=== PATIENT | female | born 1965 | race Caucasian/White ===

== ENCOUNTER 2016-10-04 16:03 | Inpatient (IN) | payer MEDICARE ==
[2016-10-04] MEDS ORDERED: SODIUM CHLORIDE 0.9% 1,000 ML IV STA (16:57)
[2016-10-04] MEDS ORDERED: ONDANSETRON 4 MG/2 ML VIAL IVP STA (16:57)
[2016-10-04] MEDS ORDERED: HYDROmorphone 1 MG/ML 1 ML SYRINGE IVP STA (16:57)
--- NOTE | 2016-10-04 17:00 | ED ---
Abdominal Pain HPI - General Source: patient, RN notes reviewed Mode of arrival: ambulatory Limitations: no limitations <Bill Shetty - Last Filed: 10/04/16 19:12> <Shiva Higgins - Last Filed: 10/04/16 19:54> - General Chief Complaint: Abdominal Pain Stated Complaint: Abd Pain/Chest Pain/Back Pain Time Seen by Provider: 10/04/16 16:39 - History of Present Illness Initial Comments: This a 51-year-old female presents emergency Department chief complaint upper abdominal pain that started around 10:00 last night. Patient states the pain feels like a tightening sensation. Patient states it does hurt more on the right upper quadrant. Patient states pain radiates up to her back, chest region. Patient denies any palpitations, shortness of breath. Patient states that she's had a prior hysterectomy and tubal ligation. Patient states that she ate around 5 PM last night and pain started 5 hours after. Patient had nausea and vomiting last night. Patient denies fever, chills. to normal bowel movements no diarrhea no constipation denies melena, hematochezia, hematemesis or coffee-ground emesis. Patient states she's had kidney stones in the past and this feels much different. (Bill Shetty) - Related Data Home Medications Medication Instructions Recorded Confirmed Albuterol Inhaler [Ventolin Hfa 1 - 2 puff INHALATION RT-Q6H PRN 10/04/16 Inhaler] Cholecalciferol [Vitamin D3] 1,000 unit PO DAILY 10/04/16 10/04/16 DULoxetine HCL [Cymbalta] 60 mg PO DAILY 10/04/16 10/04/16 Gabapentin 600 mg PO TID 10/04/16 10/04/16 Allergies Allergy/AdvReac Type Severity Reaction Status Date / Time aspirin Allergy Unknown Verified 10/04/16 17:25 Sulfa (Sulfonamide Allergy Unknown Verified 10/04/16 17:25 Antibiotics) SEAFOOD Allergy Unknown Uncoded 10/04/16 16:21 Review of Systems ROS Other: All systems not noted in ROS Statement are negative. <Bill Shetty - Last Filed: 10/04/16 19:12> ROS Other: All systems not noted in ROS Statement are negative. <Shiva Higgins - Last Filed: 10/04/16 19:54> ROS Statement: Those systems with pertinent positive or pertinent negative responses have been documented in the HPI. Past Medical History Past Medical History: Asthma Additional Past Medical History / Comment(s): NEUROPATHY History of Any Multi-Drug Resistant Organisms: None Reported Past Surgical History: Hysterectomy, Orthopedic Surgery, Tubal Ligation Past Psychological History: No Psychological Hx Reported Smoking Status: Former smoker Past Alcohol Use History: None Reported Past Drug Use History: None Reported <Bill Shetty - Last Filed: 10/04/16 19:12> General Exam Limitations: no limitations General appearance: alert, in no apparent distress Head exam: Present: atraumatic, normocephalic, normal inspection Neck exam: Present: normal inspection, full ROM. Absent: tenderness, meningismus, lymphadenopathy Respiratory exam: Present: normal lung sounds bilaterally. Absent: respiratory distress, wheezes, rales, rhonchi, stridor Cardiovascular Exam: Present: regular rate, normal rhythm, normal heart sounds. Absent: systolic murmur, diastolic murmur, rubs, gallop, clicks GI/Abdominal exam: Present: soft, tenderness (Moderate to severe right upper quadrant tenderness), normal bowel sounds. Absent: distended, guarding, rebound , rigid Back exam: Absent: CVA tenderness (R), CVA tenderness (L) Skin exam: Present: warm, dry, intact, normal color. Absent: rash <Bill Shetty - Last Filed: 10/04/16 19:12> Medical Decision Making - Lab Data Result diagrams: 10/04/16 17:15 10/04/16 17:15 <Bill Shetty - Last Filed: 10/04/16 19:12> - Lab Data Result diagrams: 10/04/16 17:15 10/04/16 17:15 <Shiva Higgins - Last Filed: 10/04/16 19:54> - Medical Decision Making Medical decision-making. The patient complaining of pain to the right upper quadrant. White count 15.9. Positive Velez sign. Ultrasound shows evidence of a large stone stuck in the neck. Appears to be cholecystitis with cholelithiasis. Case discussed with Dr. Maldonado on-call surgeon. Patient be admitted to her service placed on antibiotics. Dr. Higgins (Shiva Higgins) - Lab Data Lab Results 10/04/16 10/04/16 10/04/16 Range/Units 17:15 17:15 17:15 WBC 15.9 H (3.8-10.6) k/uL RBC 5.04 (3.80-5.40) m/uL Hgb 14.8 (11.4-16.0) gm/dL Hct 43.8 (34.0-46.0) % MCV 86.9 (80.0-100.0) fL MCH 29.4 (25.0-35.0) pg MCHC 33.8 (31.0-37.0) g/dL RDW 12.9 (11.5-15.5) % Plt Count 278 (150-450) k/uL Neutrophils % 91 % Lymphocytes % 4 % Monocytes % 4 % Eosinophils % 0 % Basophils % 0 % Neutrophils # 14.5 H (1.3-7.7) k/uL Lymphocytes # 0.7 L (1.0-4.8) k/uL Monocytes # 0.6 (0-1.0) k/uL Eosinophils # 0.1 (0-0.7) k/uL Basophils # 0.0 (0-0.2) k/uL Sodium 137 (137-145) mmol/L Potassium 4.0 (3.5-5.1) mmol/L Chloride 99 (98-107) mmol/L Carbon Dioxide 25 (22-30) mmol/L Anion Gap 13 mmol/L BUN 9 (7-17) mg/dL Creatinine 0.55 (0.52-1.04) mg/dL Est GFR (MDRD) Af Amer >60 (>60 ml/min/1.73 sqM) Est GFR (MDRD) Non-Af >60 (>60 ml/min/1.73 sqM) Glucose 139 H (74-99) mg/dL Calcium 9.6 (8.4-10.2) mg/dL Total Bilirubin 0.9 (0.2-1.3) mg/dL AST 25 (14-36) U/L ALT 50 (9-52) U/L Alkaline Phosphatase 79 (38-126) U/L Troponin I <0.012 (0.000-0.034) ng/mL Total Protein 7.7 (6.3-8.2) g/dL Albumin 4.3 (3.5-5.0) g/dL Amylase 46 (30-110) U/L Lipase 47 (23-300) U/L Urine Color Urine Appearance (Clear) Urine pH (5.0-8.0) Ur Specific [place] (1.001-1.035) Urine Protein (Negative) Urine Glucose (UA) (Negative) Urine Ketones (Negative) Urine Blood (Negative) Urine Nitrate (Negative) Urine Bilirubin (Negative) Urine Urobilinogen (<2.0) mg/dL Ur Leukocyte Esterase (Negative) 10/04/16 Range/Units 19:15 WBC (3.8-10.6) k/uL RBC (3.80-5.40) m/uL Hgb (11.4-16.0) gm/dL Hct (34.0-46.0) % MCV (80.0-100.0) fL MCH (25.0-35.0) pg MCHC (31.0-37.0) g/dL RDW (11.5-15.5) % Plt Count (150-450) k/uL Neutrophils % % Lymphocytes % % Monocytes % % Eosinophils % % Basophils % % Neutrophils # (1.3-7.7) k/uL Lymphocytes # (1.0-4.8) k/uL Monocytes # (0-1.0) k/uL Eosinophils # (0-0.7) k/uL Basophils # (0-0.2) k/uL Sodium (137-145) mmol/L Potassium (3.5-5.1) mmol/L Chloride (98-107) mmol/L Carbon Dioxide (22-30) mmol/L Anion Gap mmol/L BUN (7-17) mg/dL Creatinine (0.52-1.04) mg/dL Est GFR (MDRD) Af Amer (>60 ml/min/1.73 sqM) Est GFR (MDRD) Non-Af (>60 ml/min/1.73 sqM) Glucose (74-99) mg/dL Calcium (8.4-10.2) mg/dL Total Bilirubin (0.2-1.3) mg/dL AST (14-36) U/L ALT (9-52) U/L Alkaline Phosphatase (38-126) U/L Troponin I (0.000-0.034) ng/mL Total Protein (6.3-8.2) g/dL Albumin (3.5-5.0) g/dL Amylase (30-110) U/L Lipase (23-300) U/L Urine Color Yellow Urine Appearance Clear (Clear) Urine pH 5.5 (5.0-8.0) Ur Specific [place] 1.014 (1.001-1.035) Urine Protein Trace H (Negative) Urine Glucose (UA) Negative (Negative) Urine Ketones Negative (Negative) Urine Blood Negative (Negative) Urine Nitrate Negative (Negative) Urine Bilirubin Negative (Negative) Urine Urobilinogen <2.0 (<2.0) mg/dL Ur Leukocyte Esterase Negative (Negative) 10/04/16 19:01 EKG performed at 17:09 normal sinus rhythm with left axis deviation rate of 98, [place] 150, QRS duration 94, QT/QTC 342/436 (Bill Shetty) Disposition <Bill Shetty - Last Filed: 10/04/16 19:12> <Shiva Higgins - Last Filed: 10/04/16 19:54> Clinical Impression: Cholecystitis, acute with cholelithiasis Disposition: ADMITTED IP TO THIS HOSP Condition: Stable Referrals: Ross Lau MD [Primary Care Provider] - 1-2 days
[2016-10-04 17:36] LABS: Basophils % (A) 0 %; CH 29.7; CHCM 34.3; Eosinophils # (A) 0.1 k/uL (0-0.7); Eosinophils % (A) 0 %; HCT 43.8 % (34.0-46.0); HDW 2.56; HGB 14.8 gm/dL (11.4-16.0); Luc # (Auto) 0.09; Luc % (Auto) 1; Lymphocytes # (A) 0.7 k/uL (1.0-4.8); Lymphocytes % (A) 4 %; MCH 29.4 pg (25.0-35.0); MCHC 33.8 g/dL (31.0-37.0); MCV 86.9 fL (80.0-100.0); Mean Platelet Volume 6.3; Monocytes # (A) 0.6 k/uL (0-1.0); Monocytes % (A) 4 %; Neutrophils # (A) 14.5 k/uL (1.3-7.7); Neutrophils % (A) 91 %; RBC 5.04 m/uL (3.80-5.40); RDW 12.9 % (11.5-15.5); WBC 15.9 k/uL (3.8-10.6); WBC (Perox) 16.52
[2016-10-04 17:59] LABS: ALT 50 U/L (9-52); AST 25 U/L (14-36); Alkaline Phosphatase 79 U/L (38-126); Amylase 46 U/L (30-110); Anion Gap 13 mmol/L; Blood Urea Nitrogen 9 mg/dL (7-17); Calcium 9.6 mg/dL (8.4-10.2); Carbon Dioxide 25 mmol/L (22-30); Chloride 99 mmol/L (98-107); Glucose 139 mg/dL (74-99); Non-African American GFR(MDRD) >60 (>60 ml/min/1.73 sqM); Sodium 137 mmol/L (137-145); Total Bilirubin 0.9 mg/dL (0.2-1.3); Total Protein 7.7 g/dL (6.3-8.2)
--- NOTE | 2016-10-04 18:00 | US ---
EXAMINATION TYPE: US abdomen limited DATE OF EXAM: 10/04/2016 5:42 PM COMPARISON: NONE CLINICAL HISTORY: Pain. EXAM MEASUREMENTS: Liver Length: 19.2 cm Gallbladder Wall: 0.2 cm CBD: 0.6 cm Right Kidney: 10.2 x 5.1 x 5.5 cm TECHNOLOGIST IMPRESSION: Pancreas: Obscured by bowel gas Liver: Enlarged, Increased attenuation, decreased visualization of vessels suggestive of fatty infilt rate Gallbladder: Large stone visualized within the neck measuring 3.1 cm Evidence for sonographic Velez's sign: Yes CBD: Measuring upper limits of normal, distal portion obscured by bowel gas Right Kidney: No hydronephrosis or masses seen IMPRESSION: Gallbladder is large with a large stone at the gallbladder neck. No dilated ducts.
[2016-10-04] MEDS ORDERED: PIPERACILLIN TAZOBACTAM IVPB STA ×2 (19:12)
[2016-10-04] MEDS ORDERED: NALOXONE 0.4 MG/ML 1 ML VIAL IV PRN (19:12)
[2016-10-04] MEDS ORDERED: WATER IVPB STA ×2 (19:12)
[2016-10-04] MEDS ORDERED: ONDANSETRON 4 MG/2 ML VIAL IVP PRN (19:12)
[2016-10-04] MEDS ORDERED: DEXTROSE 5% IVPB STA ×2 (19:12)
[2016-10-04 19:23] LABS: Appearance,Urine Clear (Clear); Bilirubin,Urine Negative (Negative); Glucose,Urine (UA) Negative (Negative); Ketones,Urine Negative (Negative); Leukocyte Esterase,Urine Negative (Negative); Nitrite,Urine Negative (Negative); PH, Urine 5.5 (5.0-8.0); Protein,Urine Trace (Negative); Specific Gravity,Urine 1.014 (1.001-1.035); UA Billing (MACRO vs. MICRO) CHEM; Urobilinogen,Urine <2.0 mg/dL (<2.0)
[2016-10-04] MEDS: HYDROmorphone 1 MG/ML 1 ML SYRINGE IV PRN (19:45)
[2016-10-04] MEDS: SODIUM CHLORIDE 0.9% 1,000 ML IV SCH (20:37)
[2016-10-04 21:04] VITALS: BMI 43.5
[2016-10-04] MEDS: DULoxetine HCL 60 MG CAPSULE.DR PO SCH (22:16)
[2016-10-04] MEDS: GABAPENTIN 300 MG CAP PO SCH (22:17)
[2016-10-05] MEDS: HYDROmorphone 1 MG/ML 1 ML SYRINGE IV PRN ×4 (01:03→23:10)
[2016-10-05] MEDS: PIPERACILLIN-TAZOBACTAM 3.375 GM in DEXTROSE/WATER 1 50ML.BAG IVPB SCH ×3 (04:00→20:41)
[2016-10-05] MEDS: SODIUM CHLORIDE 0.9% 1,000 ML IV SCH ×3 (07:22→20:40)
[2016-10-05] MEDS: GABAPENTIN 300 MG CAP PO SCH ×3 (08:53→20:45)
[2016-10-05] MEDS: DULoxetine HCL 60 MG CAPSULE.DR PO SCH ×2 (08:53→20:45)
[2016-10-05] MEDS ORDERED: PANTOPRAZOLE 40 MG/10 ML VIAL IV SCH (09:00)
[2016-10-05] MEDS ORDERED: ACETAMINOPHEN IV (For NPO) 1,000 MG in EMPTY BAG 1 BAG IVPB ONE ×2 (10:08→15:20)
[2016-10-05] MEDS ORDERED: HEPARIN SODIUM,PORCINE 5,000 UNIT/ML 1 ML VIAL SQ ONE (10:08)
[2016-10-05 10:46] LABS: Basophils % (A) 0 %; CH 29.4; CHCM 33.1; Eosinophils # (A) 0.1 k/uL (0-0.7); Eosinophils % (A) 1 %; HCT 42.2 % (34.0-46.0); HDW 2.46; HGB 13.7 gm/dL (11.4-16.0); Luc # (Auto) 0.16; Luc % (Auto) 1; Lymphocytes # (A) 0.8 k/uL (1.0-4.8); Lymphocytes % (A) 6 %; MCHC 32.6 g/dL (31.0-37.0); MCV 89.1 fL (80.0-100.0); Mean Platelet Volume 6.4; Monocytes # (A) 0.7 k/uL (0-1.0); Monocytes % (A) 5 %; Neutrophils # (A) 12.8 k/uL (1.3-7.7); Neutrophils % (A) 87 %; RBC 4.74 m/uL (3.80-5.40); RDW 12.9 % (11.5-15.5); WBC 14.7 k/uL (3.8-10.6)
[2016-10-05 10:48] LABS: ALT 47 U/L (9-52); AST 24 U/L (14-36); Alkaline Phosphatase 71 U/L (38-126); Anion Gap 9 mmol/L; Blood Urea Nitrogen 10 mg/dL (7-17); Calcium 8.6 mg/dL (8.4-10.2); Carbon Dioxide 30 mmol/L (22-30); Chloride 100 mmol/L (98-107); Glucose 136 mg/dL (74-99); Non-African American GFR(MDRD) >60 (>60 ml/min/1.73 sqM); Sodium 139 mmol/L (137-145); Total Bilirubin 1.5 mg/dL (0.2-1.3); Total Protein 6.4 g/dL (6.3-8.2)
[2016-10-05] MEDS: CHOLECALCIFEROL 1,000 UNIT TAB PO SCH (11:25)
[2016-10-05] MEDS ORDERED: ceFAZolin 2 GM in SODIUM CHLORIDE 0.9% 100 ML IVPB STA (11:59)
--- NOTE | 2016-10-05 12:07 | P.GSHP ---
History of Present Illness H&P Date: 10/05/16 CHIEF COMPLAINT: Cholecystitis HISTORY OF PRESENT ILLNESS: The patient is a 51-year-old female who presents with history of epigastric including right upper quadrant abdominal pain. She underwent diagnostic studies for her gallbladder. She had an ultrasound showing an impacted 3 cm gallstone along the infundibulum. She has a family history of gallstones in her mother who has not had surgical intervention. She presents with a WBC of over 15,000. This morning she still reports severe right upper quadrant abdominal pain requiring narcotics. As a result, she has been admitted to undergo surgery. PAST MEDICAL HISTORY: Please see list PAST SURGICAL HISTORY: Please see list MEDICATIONS: Please see list ALLERGIES: Denies. SOCIAL HISTORY: No illicit drug use or recent tobacco use FAMILY HISTORY: Pertinent for gallbladder disease REVIEW OF ORGAN SYSTEMS: CONSTITUTIONAL: No reports of fevers or chills. HEENT: Denies any troubles with the vision or hearing. ENDOCRINE: No reports of hypothyroidism. No diabetes. RESPIRATORY: No recent pneumonias. CARDIOVASCULAR: Denies chest pain or palpitations GI: No blood in stools or constipation. MUSCULOSKELETAL: Has occasional joint pain including back pain. NEURO: No seizure disorders or headaches. No recent stroke. PSYCH: No depression or suicidal ideation. HEMATOLOGIC: No personal or family history of DVTs or pulmonary emboli. PHYSICAL EXAM: VITAL SIGNS: Vital Signs Temp 97.9 F 10/05/16 11:11 Pulse 111 H 10/05/16 11:11 Resp 16 10/05/16 11:11 BP 107/71 10/05/16 11:11 Pulse Ox 93 L 10/05/16 11:11 Intake & Output 10/04/16 10/05/16 10/05/16 18:59 06:59 18:59 Weight 122.47 kg 122.47 kg Other: # Voids 1 1 GENERAL: Well-developed pleasant in mild distress. HEENT: No scleral icterus. Extraocular movements grossly intact. Moist buccal mucosa. NECK: Supple without lymphadenopathy. CHEST: Unlabored respirations. Equal bilateral excursions. CARDIOVASCULAR: Has tachycardia. Distal 2+ pulses. ABDOMEN: Soft, nondistended. Tender along the epigastrium and right upper quadrant. Has peritonitis on exam. MUSCULOSKELETAL: No clubbing, cyanosis, or edema. NEURO: Cranial nerves II to XII within normal limits. No focal or lateralizing signs. PSYCH: Alert and oriented to person, place and time. ASSESSMENT: 1. Epigastric and right upper quadrant abdominal pain 2. Acute cholecystitis 3. Symptomatic gallstones. 4. Morbid obesity, BMI 43.6. 5. Peritonitis, right upper quadrant. 6. Family history of gallbladder disease. 7. Sepsis syndrome secondary to acute cholecystitis. PLAN: 1. Will need a laparoscopic cholecystectomy possible open. Benefits and risks were described. 2. Heparin for DVT prophylaxis 5000 units. 3. Antibiotic prophylaxis. 4. Full inpatient hospitalization anticipated for 2 nights secondary to acute cholecystitis and sepsis. Past Medical History Past Medical History: Asthma Additional Past Medical History / Comment(s): NEUROPATHY History of Any Multi-Drug Resistant Organisms: None Reported Past Surgical History: Hysterectomy, Orthopedic Surgery, Tubal Ligation Additional Past Surgical History / Comment(s): Carpal tunnel surgery in both hands Past Anesthesia/Blood Transfusion Reactions: No Reported Reaction Past Psychological History: No Psychological Hx Reported Additional Psychological History / Comment(s): Mild Depression, not taking anything for it. Smoking Status: Former smoker Past Alcohol Use History: None Reported Additional Past Alcohol Use History / Comment(s): Rarely has a drink Past Drug Use History: None Reported - Past Family History Father Family Medical History: Diabetes Mellitus Medications and Allergies Home Medications Medication Instructions Recorded Confirmed Type Albuterol Inhaler [Ventolin Hfa 1 - 2 puff INHALATION RT-Q6H PRN 10/04/16 History Inhaler] Cholecalciferol [Vitamin D3] 1,000 unit PO DAILY 10/04/16 10/04/16 History DULoxetine HCL [Cymbalta] 60 mg PO DAILY 10/04/16 10/04/16 History Gabapentin 600 mg PO TID 10/04/16 10/04/16 History Allergies Allergy/AdvReac Type Severity Reaction Status Date / Time aspirin Allergy Anaphylaxis Verified 10/04/16 21:13 Sulfa (Sulfonamide AdvReac Rash/Hives Verified 10/04/16 21:13 Antibiotics) SEAFOOD Allergy Swelling Uncoded 10/04/16 21:13 Surgical - Exam Vital Signs Temp Pulse Resp BP Pulse Ox 97.3 F L 108 H 18 166/86 97 10/04/16 16:15 10/04/16 16:15 10/04/16 16:15 10/04/16 16:15 10/04/16 16:15 Results - Labs 10/05/16 10:08 10/05/16 10:08
--- NOTE | 2016-10-05 12:08 | P.PN ---
Progress Note - Text Has severe attack with gallstones. Has peritonitis on exam. Laparoscopic cholecystectomy today.
[2016-10-05] MEDS ORDERED: IV FLUID CONTINUATION 1,000 ML IV ONE (12:33)
[2016-10-05] MEDS ORDERED: DEXAMETHASONE SOD PHOSPHATE 10 MG/ML 1 ML VIAL IV ONE (12:38)
[2016-10-05] MEDS ORDERED: fentaNYL (PF) 50 MCG/ML 2 ML AMP ONE (13:19)
[2016-10-05] MEDS ORDERED: SUCCINYLCHOLINE CHLORIDE VIAL 200 MG/10 ML VIAL IV ONE (13:19)
[2016-10-05] MEDS ORDERED: GLYCOPYRROLATE 0.2 MG/ML 2 ML VIAL ONE (13:19)
[2016-10-05] MEDS ORDERED: ROCURONIUM BROMIDE 10 MG/ML 10 ML VIAL IV ONE (13:19)
[2016-10-05] MEDS ORDERED: PROPOFOL 10 MG/ML 20 ML VIAL IV ONE (13:19)
[2016-10-05] MEDS ORDERED: MIDAZOLAM 2 MG/2 ML VIAL ONE (13:19)
[2016-10-05] MEDS ORDERED: BUPIVACAIN-EPI 0.25%-1:200,000 30 ML VIAL SQ ONE ×3 (13:19→15:14)
[2016-10-05] MEDS ORDERED: NEOSTIGMINE 1 MG/ML 10 ML VIAL ONE (13:19)
[2016-10-05] MEDS ORDERED: ALBUTEROL INHALER 60 PUFF/8 GM INHALER INHALATION ONE (13:19)
[2016-10-05] MEDS ORDERED: LIDOCAINE 1% INJ 10MG/ML (20 ML MDV) ONE (13:19)
[2016-10-05] MEDS ORDERED: LACTATED RINGERS 1,000 ML IV ONE ×2 (13:47→16:48)
--- NOTE | 2016-10-05 15:23 | P.PCN ---
Date of Procedure: 10/05/16 Preoperative Diagnosis: Sepsis, acute gangrenous cholecystitis, peritonitis, morbid obesity, BMI 43.6 Postoperative Diagnosis: Same, hepatomegaly, fatty liver disease Procedure(s) Performed: Laparoscopic cholecystectomy, decompression of gallbladder Anesthesia: KORY, local Surgeon: Taty Maldonado Estimated Blood Loss (ml): 20 Pathology: other (Gallbladder fluid, gallbladder) Condition: stable Disposition: floor Indications for Procedure: Contaminated case for gangrenous gallbladder, turbid peritoneal fluid sent for culture, short cystic duct identified and preserved for CBD, impacted gallstone along infundibulum
[2016-10-05] MEDS: HYDROmorphone 1 MG/ML 1 ML SYRINGE IVP ONE ×2 (16:37→16:46)
[2016-10-05] MEDS: HEPARIN SODIUM,PORCINE 5,000 UNIT/ML 1 ML VIAL SQ SCH (20:46)
[2016-10-06] MEDS: PIPERACILLIN-TAZOBACTAM 3.375 GM in DEXTROSE/WATER 1 50ML.BAG IVPB SCH ×3 (04:06→20:06)
[2016-10-06 06:43] LABS: Basophils % (A) 0 %; CH 29.1; CHCM 32.2; Eosinophils % (A) 0 %; HCT 37.8 % (34.0-46.0); HDW 2.45; HGB 12.1 gm/dL (11.4-16.0); Luc % (Auto) 2; Lymphocytes % (A) 7 %; MCH 28.9 pg (25.0-35.0); MCHC 31.9 g/dL (31.0-37.0); MCV 90.5 fL (80.0-100.0); Mean Platelet Volume 7.1; Monocytes # (A) 0.6 k/uL (0-1.0); Monocytes % (A) 5 %; Neutrophils # (A) 11.4 k/uL (1.3-7.7); Neutrophils % (A) 86 %; RBC 4.18 m/uL (3.80-5.40); RDW 12.9 % (11.5-15.5); WBC 13.2 k/uL (3.8-10.6)
--- NOTE | 2016-10-06 06:44 | P.OP ---
Date of Procedure: 10/05/16 Description of Procedure: SURGEON: DIANE ANG MD STRATEGY INTERN: None. PREOPERATIVE DIAGNOSES: 1. Acute cholecystitis. 2. Right upper quadrant peritonitis. 3. Sepsis due to acute cholecystitis. 4. Morbid obesity, BMI 43.6. 5. Neuropathy, lower extremities. 6. Impacted gallstone, gallbladder infundibulum. 7. Leukocytosis. 8. Tachycardia. 9. Family history of gallbladder disease. POSTOPERATIVE DIAGNOSES: 1. Acute gangrenous cholecystitis with cystic duct obstruction due to impacted stone along gallbladder infundibulum. 2. Right upper quadrant peritonitis. 3. Sepsis due to acute cholecystitis. 4. Morbid obesity, BMI 43.6. 5. Neuropathy, lower extremities. 6. Impacted gallstone, gallbladder infundibulum. 7. Leukocytosis. 8. Tachycardia. 9. Ascites with peritonitis, right upper quadrant. 10. Hepatomegaly with fatty liver disease. 11. Family history of gallbladder disease. OPERATION: 1. Laparoscopic cholecystectomy. 2. Percutaneous decompression gallbladder. 3. Lysis of adhesions, right upper quadrant using Sonicision and electrocautery Bovie cautery over 30 minutes. ANESTHESIA: General with 30 mL 0.25% Marcaine with epinephrine. ESTIMATED BLOOD LOSS: 20 mL. SPECIMENS REMOVED: 1. Gallbladder. 2. Gallbladder fluid. 3. Peritoneal fluid. COMPLICATIONS: None. INDICATIONS: The patient is a 51-year-old female who presents with acute right upper quadrant abdominal pain in the last 24 hours. He presents with tachycardia including leukocytosis consistent with early sepsis. Diagnostic studies were consistent with impacted gallstone along the infundibulum. Surgical intervention with a laparoscopic cholecystectomy was described at length including injury to the biliary tree, bleeding, infection, need for further surgery. Informed consent was obtained. DESCRIPTION OF THE PROCEDURE: The patient was brought to the operating room, laid in supine position. After general induction, the abdomen was prepped and draped in a standard sterile fashion. Prior to incision, a timeout protocol was confirmed with surgical team regarding patient's name, procedure to be performed including preoperative medications for which she had received heparin 5000 units subcutaneously as well as bilateral SCDs for DVT prophylaxis. A transverse 5 mm incision was made above the umbilicus and off to the right of the midline. Please note the skin was localized prior to incision. A 0 degree 5-mm laparoscopic trocar entry was performed and entered into the peritoneal cavity. Diagnostic laparoscopy confirmed no injury to bowel, viscera or mesentery. The liver is large consistent with hepatomegaly and fatty liver disease. Next, two 5 mm trocars were placed along the right costal margin followed by a 11 mm port at the left upper quadrant. The patient was placed in steep reverse Trendelenburg position with the right side up. The gallbladder was covered with greater omentum and dense right upper quadrant adhesions. Lysis of adhesions occurred for 30 minutes with Sonicision and electro-Bovie cautery. Care was taken to avoid any injury to the bowel. The gallbladder was very distended with tight and thick gallbladder wall. Additionally, area of partial necrosis along the gallbladder wall was found along the body of the gallbladder. Turbid right upper quadrant fluid was aspirated and sent for cultures. Next, decompression of the gallbladder using electro-Bovie as performed to allow handling of the gallbladder. Gallbladder fluid was also sent. As the liver was extremely large, reflection of the gallbladder over the dome of the liver was challenging. The gallbladder fundus was retracted over the dome of the liver. A large 3 cm gallstone was found impacted along the infundibulum whereby careful blunt dissection for over 20 minutes was performed to identify the cystic duct from the common bile duct. No harm or injury had occurred to the common bile duct which is carefully delineated. The 11 mm trocar along the left upper quadrant was replaced with a 12 mm port for a 12 mm clip erp consultant. A short cystic duct was confirmed. A meandering left cystic artery anterior to the common bile duct was identified, clipped and divided using Sonicision. nitial attention was brought to the infundibulum which was gently Using a large clip erp consultant 3 clips were placed proximally on the cystic duct. On the body of the gallbladder, the cystic duct was divided to prevent any injury to the common bile duct as this was a short cystic duct. Again care was taken to avoid any injury to the biliary tree as the common bile duct was visualized during this portion of dissection. Next, the cystic artery was clipped twice proximally, once distally and then cauterized. The cystic structures were divided using Sonicision. Electro-Bovie cautery and Sonicision was used to remove the gallbladder from the hepatic fossa. The gallbladder was also intrahepatic and the liver bed was carefully cauterized. Hemostasis was checked and found to be adequate. The gallbladder was removed from the abdominal cavity via the left upper quadrant for which the fascia was widen to allow removal of the gallbladder with large gallstones using an Endo Catch bag. The specimen was passed off for further pathological analysis. The abdomen was irrigated using 1 L of normal saline solution until the aspirant was clear. All instruments and pneumoperitoneum were removed from the abdominal cavity. The fascial defect of the left upper quadrant was oversewn using 0 Vicryl and Ezequiel Smith. The rest of incisions were reapproximated using 4-0 Monocryl in an interrupted subcuticular fashion. A total of 30 mL of 0.25% Marcaine with epinephrine was infiltrated to all wounds for postop analgesia. Dermabond was applied to the skin. OptiFoam antibiotic dressing was placed over the left upper quadrant incision as this is a contaminated case. At the end of the procedure, needle, sponge, and instrument count was verified correct by surgical physician assistant. The patient had tolerated the procedure well and was taken to postanesthesia care unit in stable condition. Per request of the patient, her friend was contacted via telephone after surgery. FINDINGS: 1. Turbid peritoneal fluid with peritonitis right upper quadrant. 2. Acute gangrenous cholecystitis with impacted gallstone and cystic duct obstruction. 3. Adhesions of the right upper quadrant adding an additional 30 minutes to the case. 4. Anatominal variant with meandering left cystic artery anterior the common bile duct. 5. Short cystic duct.
--- NOTE | 2016-10-06 06:45 | P.PN ---
Progress Note - Text Patient re-evaluated this evening. Right upper quadrant abdominal pain moderately improved. We'll continue with antibiotics with history of sepsis.
[2016-10-06 07:07] LABS: ALT 78 U/L (9-52); AST 54 U/L (14-36); Alkaline Phosphatase 70 U/L (38-126); Anion Gap 9 mmol/L; Blood Urea Nitrogen 12 mg/dL (7-17); Calcium 8.5 mg/dL (8.4-10.2); Carbon Dioxide 31 mmol/L (22-30); Chloride 100 mmol/L (98-107); Glucose 122 mg/dL (74-99); Magnesium 1.9 mg/dL (1.6-2.3); Non-African American GFR(MDRD) >60 (>60 ml/min/1.73 sqM); Phosphorous 3.4 mg/dL (2.5-4.5); Potassium 4.1 mmol/L (3.5-5.1); Sodium 140 mmol/L (137-145); Total Bilirubin 0.9 mg/dL (0.2-1.3)
[2016-10-06] MEDS ORDERED: PANTOPRAZOLE 40 MG/10 ML VIAL IV SCH (09:00)
[2016-10-06] MEDS: GABAPENTIN 300 MG CAP PO SCH ×3 (09:13→22:10)
[2016-10-06] MEDS: HEPARIN SODIUM,PORCINE 5,000 UNIT/ML 1 ML VIAL SQ SCH ×2 (09:14→22:08)
[2016-10-06] MEDS: HYDROmorphone 1 MG/ML 1 ML SYRINGE IV PRN (09:22)
--- NOTE | 2016-10-06 10:54 | P.PN ---
Subjective Principal diagnosis: Sepsis with cholecystitis The patient is a 51-year-old female postop day 1 status post laparoscopic cholecystectomy. Intraoperative findings including gangrenous cholecystitis was discussed. Risk after surgery including bile leak and retained gallstone were also reviewed. She is tolerating liquid diet. She has an appetite. She is yet to ambulate. She has been started on incentive spirometry. She reports improvement of her right upper quadrant abdominal pain. Overall she only complains of expected mild post-incisional pain. Objective - Vital Signs Vital signs: Vital Signs Temp 98.7 F 10/06/16 04:00 Pulse 90 10/06/16 04:00 Resp 16 10/06/16 04:00 BP 142/78 10/05/16 23:00 Pulse Ox 94 L 10/06/16 04:00 Intake & Output 10/05/16 10/06/16 10/06/16 18:59 06:59 18:59 Intake Total 1400 Output Total 820 550 Balance 580 -550 Intake: IV 1400 Output: Urine 800 550 Estimated Blood Loss 20 Other: # Voids 1 0 - Exam GENERAL: Well developed and in no acute distress. Pleasant. HEENT: No sclera icterus. Extraocular movements grossly intact. Moist buccal mucosa. Head is atraumatic, normocephalic. Hears conversational speech. No nasal drainage. NECK: Supple without lymphadenopathy. No JV distention. CHEST: Non-labored respirations and equal bilateral excursions. CARDIOVASCULAR: Regular rate and rhythm. Palpable 2+ radial pulses. ABDOMEN: Soft. Mild distention. Incisions clean dry and intact laparoscopic sites. Antibiotic dressing intact at left upper quadrant. No peritonitis. MUSCULOSKELETAL: No clubbing, cyanosis or edema. NEUROLOGIC: No focal or lateralizing signs. PSYCH: Appropriate affect. Alert and oriented to person, place and time. - Labs CBC & Chem 7: 10/06/16 06:29 10/06/16 06:29 Labs: Abnormal Lab Results - Last 24 Hours (Table) 10/05/16 10/05/16 10/06/16 Range/Units 10:08 10:08 06:29 WBC 14.7 H 13.2 H (3.8-10.6) k/uL Neutrophils # 12.8 H 11.4 H (1.3-7.7) k/uL Lymphocytes # 0.8 L (1.0-4.8) k/uL Carbon Dioxide (22-30) mmol/L Glucose 136 H (74-99) mg/dL Total Bilirubin 1.5 H (0.2-1.3) mg/dL AST (14-36) U/L ALT (9-52) U/L Total Protein (6.3-8.2) g/dL Albumin (3.5-5.0) g/dL 10/06/16 Range/Units 06:29 WBC (3.8-10.6) k/uL Neutrophils # (1.3-7.7) k/uL Lymphocytes # (1.0-4.8) k/uL Carbon Dioxide 31 H (22-30) mmol/L Glucose 122 H (74-99) mg/dL Total Bilirubin (0.2-1.3) mg/dL AST 54 H (14-36) U/L ALT 78 H (9-52) U/L Total Protein 6.0 L (6.3-8.2) g/dL Albumin 3.2 L (3.5-5.0) g/dL Microbiology - Last 24 Hours (Table) 10/05/16 14:00 Gram Stain - Preliminary Aspirate Body Fluid Culture - Preliminary 10/05/16 14:00 Anaerobic Culture - Preliminary Gallbladder Fluid Assessment and Plan (1) Acute gangrenous cholecystitis Status: Acute (2) Peritonitis Status: Acute (3) Gallstones Status: Chronic (4) Calculus of cystic duct with obstruction Status: Acute (5) Morbid obesity due to excess calories Status: Chronic (6) BMI greater than 40 Status: Chronic (7) Sleep apnea Status: Chronic (8) Adhesion of abdominal wall Status: Chronic (9) Sepsis Status: Acute (10) Leukocytosis Status: Acute (11) Tachycardia Status: Acute (12) Elevated bilirubin Status: Acute Plan: 1. Her chemistries particularly her elevated bilirubin is now normal following surgery. 2. With a history of sepsis including acute cholecystitis, recommend continued IV antibiotics as she had a contaminated case. 3. Risks post cholecystectomy were also reviewed including potential bile leak or retained stone. We'll continue to monitor. 4. Advance diet. 5. Incentive spirometry. 6. Ambulate 4 times a day. 7. Anticipated hospitalization for another 48 hours for resolution of sepsis including leukocytosis. Care plan reviewed with the patient for which she was pleased with the level of care.
[2016-10-06] MEDS: CHOLECALCIFEROL 1,000 UNIT TAB PO SCH (12:00)
[2016-10-06] MEDS: SODIUM CHLORIDE 0.9% 1,000 ML IV SCH ×3 (12:12→22:22)
[2016-10-06] MEDS: HYDROcodone/APAP 5-325MG 1 EACH TAB PO PRN ×2 (12:16→22:15)
--- NOTE | 2016-10-06 17:44 | P.PN ---
Progress Note - Text Patient seen and evaluated. She feels much better this morning and is tolerating soft diet. Discharge anticipated for tomorrow with prescriptions written. Follow-up in the office next week.
[2016-10-06 21:21] VITALS: RESP 20
[2016-10-06] MEDS: DULoxetine HCL 60 MG CAPSULE.DR PO SCH (22:09)
[2016-10-07] MEDS: PIPERACILLIN-TAZOBACTAM 3.375 GM in DEXTROSE/WATER 1 50ML.BAG IVPB SCH (03:54)
[2016-10-07] MEDS: SODIUM CHLORIDE 0.9% 1,000 ML IV SCH (03:57)
[2016-10-07 06:35] LABS: Basophils % (A) 1 %; CH 28.9; CHCM 31.5; Eosinophils # (A) 0.3 k/uL (0-0.7); Eosinophils % (A) 4 %; HCT 36.4 % (34.0-46.0); HDW 2.48; HGB 11.4 gm/dL (11.4-16.0); Luc # (Auto) 0.28; Luc % (Auto) 4; Lymphocytes # (A) 1.3 k/uL (1.0-4.8); Lymphocytes % (A) 19 %; MCHC 31.4 g/dL (31.0-37.0); MCV 92.2 fL (80.0-100.0); Mean Platelet Volume 6.6; Monocytes # (A) 0.4 k/uL (0-1.0); Monocytes % (A) 5 %; Neutrophils # (A) 4.5 k/uL (1.3-7.7); Neutrophils % (A) 67 %; RBC 3.95 m/uL (3.80-5.40); RDW 12.9 % (11.5-15.5); WBC 6.8 k/uL (3.8-10.6); WBC (Perox) 7.16
[2016-10-07 06:39] LABS: ALT 75 U/L (9-52); AST 45 U/L (14-36); Alkaline Phosphatase 68 U/L (38-126); Anion Gap 5 mmol/L; Blood Urea Nitrogen 11 mg/dL (7-17); Calcium 8.1 mg/dL (8.4-10.2); Carbon Dioxide 33 mmol/L (22-30); Chloride 103 mmol/L (98-107); Glucose 99 mg/dL (74-99); Non-African American GFR(MDRD) >60 (>60 ml/min/1.73 sqM); Potassium 4.1 mmol/L (3.5-5.1); Sodium 141 mmol/L (137-145); Total Bilirubin 0.7 mg/dL (0.2-1.3); Total Protein 5.3 g/dL (6.3-8.2)
[2016-10-07] MEDS ORDERED: PANTOPRAZOLE 40 MG TABLET PO SCH (07:30)
[2016-10-07] MEDS: HYDROcodone/APAP 5-325MG 1 EACH TAB PO PRN (08:19)
[2016-10-07] MEDS: HEPARIN SODIUM,PORCINE 5,000 UNIT/ML 1 ML VIAL SQ SCH (09:01)
[2016-10-07] MEDS: GABAPENTIN 300 MG CAP PO SCH (09:01)
[2016-10-07 12:27] VITALS: BP 113/72; PULSE 83; TEMP 98.9
[2016-10-07] MEDS: CHOLECALCIFEROL 1,000 UNIT TAB PO SCH (12:45)
--- NOTE | 2016-10-07 15:45 | P.DS ---
Providers Date of admission: 10/04/16 19:22 Expected date of discharge: 10/07/16 Attending physician: Taty Maldonado Primary care physician: Ross Lau - Discharge Diagnosis(es) (1) Acute gangrenous cholecystitis Status: Acute (2) Peritonitis Status: Acute (3) Gallstones Status: Chronic (4) Calculus of cystic duct with obstruction Status: Acute (5) Morbid obesity due to excess calories Status: Chronic (6) BMI greater than 40 Status: Chronic (7) Sleep apnea Status: Chronic (8) Adhesion of abdominal wall Status: Chronic (9) Sepsis Status: Acute (10) Leukocytosis Status: Acute (11) Tachycardia Status: Acute (12) Elevated bilirubin Status: Acute Hospital Course: The patient is a 51-year-old female who is admitted for acute epigastric and right upper quadrant abdominal pain. Diagnostic studies were consistent with an impacted gallstone along the neck of the gallbladder. On exam she had clinical features of peritonitis including early sepsis. She was emergently taken to the operating room where acute gangrenous cholecystitis was identified. Postoperatively, she was tolerating diet. Antibiotics were continued for history of sepsis including contaminated case. Prior to discharge she was tolerating diet. Her white blood cell count was normal. Her pain was well-controlled. Discharge instructions were verbalized with follow-up in the office within 5-7 days. Pertinent Studies: Ultrasound of the abdomen consistent with acute cholecystitis Procedures: Laparoscopic cholecystectomy 10/05/2016 Patient Condition at Discharge: Stable Plan - Discharge Summary New Discharge Prescriptions: HYDROcodone/APAP 5-325MG [[place] 5-325] 1 tab PO Q6HR PRN #30 tab PRN Reason: Pain Discharge Medication List Albuterol Inhaler [Ventolin Hfa Inhaler] 1 - 2 puff INHALATION RT-Q6H PRN [History] Cholecalciferol [Vitamin D3] 1,000 unit PO DAILY 10/04/16 [History] DULoxetine HCL [Cymbalta] 60 mg PO DAILY 10/04/16 [History] Gabapentin 600 mg PO TID 10/04/16 [History] HYDROcodone/APAP 5-325MG [[place] 5-325] 1 tab PO Q6HR PRN #30 tab 10/06/16 [Rx] Follow up Appointment(s)/Referral(s): Ross Lau MD [Primary Care Provider] - 1-2 days Taty Maldonado MD [STAFF PHYSICIAN] - 10/12/16 10:00 am Patient Instructions/Handouts: Low Fat Diet (GEN), Laparoscopic Cholecystectomy (DC) Activity/Diet/Wound Care/Special Instructions: No lifting over 4 pounds in 4 weeks. May sponge bath. Do not shower until cleared by surgeon. Dressings to be discontinued by surgeon in the office. soft foods as tolerated, drink fluids. continue to use your Incentive spirometery at home. Call office with any fever, chills, increased pain not covered by pain meds, increased redness or drainage from puncture sites or any concerns. last received 2 [place] at 0820 Discharge Disposition: HOME SELF-CARE
== END 2016-10-07 14:27 | disposition home or self-care (01) | DRG 853 ==
LOC: EC 16:03 → 6PED 19:22
PROVIDERS: ADMIT Surgery Plastic and Reconstructive Surgery; ATTEND Surgery Plastic and Reconstructive Surgery
PROC: 0FT44ZZ Resection of Gallbladder, Percutaneous Endoscopic Approach (ICD-10-PCS; principal; 2016-10-05 07:30)
DX: A41.9 Sepsis, unspecified organism (principal); K65.9 Peritonitis, unspecified; Z68.41 Body mass index [BMI] 40.0-44.9, adult; K80.01 Calculus of gallbladder with acute cholecystitis with obstruction; E66.01 Morbid (severe) obesity due to excess calories; K76.0 Fatty (change of) liver, not elsewhere classified; R16.0 Hepatomegaly, not elsewhere classified; G62.9 Polyneuropathy, unspecified; G47.30 Sleep apnea, unspecified; J45.909 Unspecified asthma, uncomplicated; K66.0 Peritoneal adhesions (postprocedural) (postinfection); F32.9 Major depressive disorder, single episode, unspecified; Z87.891 Personal history of nicotine dependence; Z79.899 Other long term (current) drug therapy; Z88.2 Allergy status to sulfonamides; Z88.6 Allergy status to analgesic agent; Z91.013 Allergy to seafood
CPT/HCPCS: 36415; 76705; 80053; 81003; 82150; 83690; 83735; 84100; 84484; 85025; 87070; 87075; 87077; 87186; 87205; 88304; 93005; 96361; 96374; 96375; 96376; 99285

== ENCOUNTER 2017-01-21 21:30 | Emergency (ER) | payer MEDICARE ==
[2017-01-21] MEDS ORDERED: methylPREDNISolone SOD SUCCI 125 MG/2 ML VIAL IM ONE (22:01)
[2017-01-21] MEDS ORDERED: FAMOTIDINE 20 MG TAB PO STA (22:01)
--- NOTE | 2017-01-21 22:10 | ED ---
Allergic Reaction HPI - General Chief complaint: Allergic Reaction Stated complaint: rash/hives Time Seen by Provider: 01/21/17 21:54 Source: patient, RN notes reviewed Mode of arrival: ambulatory Limitations: no limitations - History of Present Illness Initial Comments: This is a 51-year-old female who states she started Wellbutrin 5 days ago but quit 2 days ago started developing a rash when she stopped using Wellbutrin. She states initially was on the arm no sign her legs arms and trunk is very itchy she denies any difficulty with swallowing however any difficulty with breathing. She's never had an ALLERGIC reaction to Wellbutrin before but apparently is ever been on it she denies any new soaps or detergents fabrics softeners clothing or exposure to other known or unknown possible allergens. She denies any fevers chills or sweats. MD Complaint: allergic reaction, hives - Related Data Home Medications Medication Instructions Recorded Confirmed Albuterol Inhaler [Ventolin Hfa 1 - 2 puff INHALATION RT-Q6H PRN 10/04/16 Inhaler] Cholecalciferol [Vitamin D3] 1,000 unit PO DAILY 10/04/16 10/04/16 DULoxetine HCL [Cymbalta] 60 mg PO DAILY 10/04/16 10/04/16 Gabapentin 600 mg PO TID 10/04/16 10/04/16 Previous Rx's Medication Instructions Recorded HYDROcodone/APAP 5-325MG [[place] 1 tab PO Q6HR PRN #30 tab 10/06/16 5-325] Famotidine [Pepcid] 20 mg PO BID #10 tablet 01/21/17 diphenhydrAMINE [Benadryl] 25 mg PO QID PRN #20 capsule 01/21/17 hydrOXYzine HCL [Atarax] 25 mg PO TID PRN #15 tab 01/21/17 predniSONE 20 mg PO BID #10 tab 01/21/17 Allergies Allergy/AdvReac Type Severity Reaction Status Date / Time aspirin Allergy Anaphylaxis Verified 01/21/17 22:06 Sulfa (Sulfonamide Allergy Rash/Hives Verified 01/21/17 22:06 Antibiotics) SEAFOOD Allergy Anaphylaxis Uncoded 01/21/17 22:06 Review of Systems ROS Statement: Those systems with pertinent positive or pertinent negative responses have been documented in the HPI. ROS Other: All systems not noted in ROS Statement are negative. Past Medical History Past Medical History: Asthma Additional Past Medical History / Comment(s): NEUROPATHY History of Any Multi-Drug Resistant Organisms: None Reported Past Surgical History: Hysterectomy, Orthopedic Surgery, Tubal Ligation Additional Past Surgical History / Comment(s): Carpal tunnel surgery in both hands Past Anesthesia/Blood Transfusion Reactions: No Reported Reaction Past Psychological History: No Psychological Hx Reported Additional Psychological History / Comment(s): Mild Depression, not taking anything for it. Smoking Status: Never smoker Past Alcohol Use History: None Reported Additional Past Alcohol Use History / Comment(s): Rarely has a drink Past Drug Use History: None Reported - Past Family History Father Family Medical History: Diabetes Mellitus General Exam - General Exam Comments Initial Comments: This is a well-developed well-nourished awake alert oriented 3 female Limitations: no limitations General appearance: alert, anxious Head exam: Present: atraumatic, normocephalic, normal inspection Eye exam: Present: normal appearance, PERRL, EOMI. Absent: scleral icterus, conjunctival injection, periorbital swelling ENT exam: Present: normal exam, mucous membranes moist Neck exam: Present: normal inspection. Absent: tenderness, meningismus, lymphadenopathy Respiratory exam: Present: normal lung sounds bilaterally. Absent: respiratory distress, wheezes, rales, rhonchi, stridor Cardiovascular Exam: Present: regular rate, normal rhythm, normal heart sounds. Absent: systolic murmur, diastolic murmur, rubs, gallop, clicks GI/Abdominal exam: Present: soft, normal bowel sounds. Absent: distended, tenderness, guarding, rebound, rigid Extremities exam: Present: normal inspection, full ROM, normal capillary refill. Absent: tenderness, pedal edema, joint swelling, calf tenderness Back exam: Present: normal inspection Neurological exam: Present: alert, oriented X3, CN II-XII intact Psychiatric exam: Present: normal affect, normal mood Skin exam: Present: warm, dry, intact, erythema. Absent: normal color ( Erythematous rash over the extremities and trunk. He does appear consistent with ALLERGIC reaction.), rash Course Vital Signs 01/21/17 21:41 Temperature 97.6 F Pulse Rate 105 H Respiratory 16 Rate Blood Pressure 179/87 O2 Sat by Pulse 96 Oximetry Medical Decision Making - Medical Decision Making The patient did drive tonight further medication will be withheld except by prescription. She will be discharged with appropriate medication she was advised to avoid hot environments cool compresses when necessary medications as directed. Follow-up with her doctor and return as needed. Disposition Clinical Impression: Allergic reaction, Adverse reaction to drug Disposition: HOME SELF-CARE Condition: Good Instructions: General Allergic Reaction (ED), Urticaria (ED) Prescriptions: diphenhydrAMINE [Benadryl] 25 mg PO QID PRN #20 capsule PRN Reason: Rash Famotidine [Pepcid] 20 mg PO BID #10 tablet hydrOXYzine HCL [Atarax] 25 mg PO TID PRN #15 tab PRN Reason: Itching predniSONE 20 mg PO BID #10 tab Referrals: Ross Lau MD [Primary Care Provider] - 1-2 days
[2017-01-21 22:32] VITALS: BP 141/72; PULSE 100; RESP 18; TEMP 98.5
== END 2017-01-21 22:33 | disposition home or self-care (01) ==
LOC: EC 21:30
DX: R21 Rash and other nonspecific skin eruption (principal); L50.9 Urticaria, unspecified; T43.295A Adverse effect of other antidepressants, initial encounter; F32.9 Major depressive disorder, single episode, unspecified; G62.9 Polyneuropathy, unspecified; Z79.899 Other long term (current) drug therapy; Z88.6 Allergy status to analgesic agent; Z88.2 Allergy status to sulfonamides; Z91.013 Allergy to seafood
CPT/HCPCS: 99283; 96372; J2930

== ENCOUNTER 2019-03-17 14:50 | Emergency (ER) | payer MEDICARE ==
[2019-03-17 15:09] VITALS: BP 157/83; PULSE 98; RESP 18; TEMP 98.9
[2019-03-17] MEDS ORDERED: PROPARACAINE 0.5% OPHTH DROPS 15 ML BTL BOTH EYES STA (15:11)
--- NOTE | 2019-03-17 15:45 | ED ---
General Adult HPI - General Chief complaint: Eye Problems Stated complaint: Eye pain Time Seen by Provider: 03/17/19 15:10 Source: patient, RN notes reviewed Mode of arrival: ambulatory Limitations: no limitations - History of Present Illness Initial comments: Stacy is a 54-year-old female complaining of bilateral eye irritation x 3 days. Patient denies coming into contact with any irritants. States that her left eye started to be painful and irritated. States it started to water. Patient's right eye started to feel irritated yesterday. States that she has foreign body sensation of both eyes. Denies any trauma to the eyes. Patient does admit to wearing glasses but denies wearing contacts. Denies pain with movement of the eye. Does admit to blurry vision like there is "Vaseline over her eyes." Denies any headache. Does admit to sore throat for the past few days as well. Denies any floaters or black curtains over her vision. Patient has no other complaints at this time including shortness of breath, chest pain, abdominal pain, nausea or vomiting, headache. - Related Data Home Medications Medication Instructions Recorded Confirmed Albuterol Inhaler [Ventolin Hfa 1 - 2 puff INHALATION RT-Q6H PRN 10/04/16 03/17/19 Inhaler] Gabapentin 600 mg PO TID 10/04/16 03/17/19 Allergies Allergy/AdvReac Type Severity Reaction Status Date / Time aspirin Allergy Anaphylaxis Verified 03/17/19 15:50 bupropion Allergy Rash/Hives Verified 03/17/19 15:50 Sulfa (Sulfonamide Allergy Rash/Hives Verified 03/17/19 15:50 Antibiotics) SEAFOOD Allergy Anaphylaxis Uncoded 03/17/19 15:50 Review of Systems ROS Statement: Those systems with pertinent positive or pertinent negative responses have been documented in the HPI. ROS Other: All systems not noted in ROS Statement are negative. Past Medical History Past Medical History: Asthma Additional Past Medical History / Comment(s): NEUROPATHY History of Any Multi-Drug Resistant Organisms: None Reported Past Surgical History: Hysterectomy, Orthopedic Surgery, Tubal Ligation Additional Past Surgical History / Comment(s): Carpal tunnel surgery in both hands Past Anesthesia/Blood Transfusion Reactions: No Reported Reaction Past Psychological History: No Psychological Hx Reported Smoking Status: Never smoker Past Alcohol Use History: None Reported Past Drug Use History: None Reported - Past Family History Father Family Medical History: Diabetes Mellitus General Exam Limitations: no limitations General appearance: alert, in no apparent distress Head exam: Present: atraumatic, normocephalic, normal inspection Eye exam: Present: normal appearance, PERRL, EOMI, conjunctival injection (erythema noted of the bilateral conjunctiva ). Absent: scleral icterus, periorbital swelling, periorbital tenderness Expanded Eyelids: Normal Inspection: Bilateral Pupils: Regular, Round: Bilateral Sclera/Conjunctival: Injection: Bilateral Visual acuity (R) = 20/: 100 Visual acuity (L) = 20/: 70 With correction: Yes (BL: 20/50) IOP (R) in mmH IOP (L) in mmH IOP measured with: Tonopen ENT exam: Present: normal exam, normal oropharynx (Mild erythema however no exudates, uvula is midline.), mucous membranes moist Neck exam: Present: normal inspection, full ROM. Absent: tenderness, meningismus, lymphadenopathy Respiratory exam: Present: normal lung sounds bilaterally. Absent: respiratory distress, wheezes, rales, rhonchi, stridor Cardiovascular Exam: Present: regular rate, normal rhythm, normal heart sounds. Absent: systolic murmur, diastolic murmur, rubs, gallop, clicks Neurological exam: Present: alert, oriented X3 Psychiatric exam: Present: normal affect, normal mood Course Vital Signs 03/17/19 15:06 Temperature 98.9 F Pulse Rate 98 Respiratory 18 Rate Blood Pressure 157/83 O2 Sat by Pulse 99 Oximetry Medical Decision Making - Medical Decision Making Stacy is a 54-year-old female complaining of bilateral eye irritation 3 days. States that this started with the left eye 3 days ago in the right eye 2 days ago. States that she feels there are foreign body sensation in her eyes. Denies trauma to the eyes. Does admit to wearing glasses but denies wearing contacts. Denies pain with eye movement. On exam patient does have erythema noted to the bilateral conjunctivae but does not spare the limbus. No evidence of foreign body under the eyelids. Huerta lamp was used to visualize conjunctiva, no obvious abrasions. Patient has no pain in the right eye of 29, 25 in the left, states she has been told before she has high pressure in her eyes. She does complain of blurry vision. Visual acuity 20/100 and 20/70 in the right and left eye respectively with correction. This could be a conjunctivitis however given degree of erythema with no limbic sparing I did Discussed this case with Dr. Bhatt who is currently in his office, recommends sending the patient over. Her roommate is driving her as she has blurry vision. He will further examine her at his discretion. Dr. Wisdom agrees with this and also evaluated patient Disposition Clinical Impression: Eye irritation Disposition: HOME SELF-CARE Condition: Good Instructions (If sedation given, give patient instructions): Conjunctivitis (ED) Additional Instructions: Please go directly to Dr. Bhatt's office, at [facility] from [employer] Is patient prescribed a controlled substance at d/c from ED?: No Referrals: Ross Lau MD [Primary Care Provider] - 1-2 days Time of Disposition: 16:00
== END 2019-03-17 16:08 | disposition home or self-care (01) ==
LOC: EC 14:50
DX: H57.89 Other specified disorders of eye and adnexa (principal); H53.8 Other visual disturbances; L53.9 Erythematous condition, unspecified; J02.9 Acute pharyngitis, unspecified; J45.909 Unspecified asthma, uncomplicated; G62.9 Polyneuropathy, unspecified; Z79.899 Other long term (current) drug therapy; Z88.6 Allergy status to analgesic agent; Z88.2 Allergy status to sulfonamides; Z91.013 Allergy to seafood; Z88.8 Allergy status to other drugs, medicaments and biological substances; Z98.51 Tubal ligation status
CPT/HCPCS: 99283

== ENCOUNTER → 2019-05-07 | Outpatient (CLI) | payer MEDICARE ==
[2019-05-07 14:07] VITALS: BP 162/96; PULSE 91; RESP 16; TEMP 98.4; BMI 43.7
--- NOTE | 2019-05-07 15:51 | P.HPBAR ---
Bariatric H&P - History & Physicial H&P Date: 05/07/19 History & Physicial: Visit/CC: Initial Visit Patient initial contact: Initial weight: 122.98 kg Initial weight in pounds: 271.13 Height: 5 ft 6 in Initial BMI: 43.7 Last weight: Current weight: 122.98 kg Current weight in pounds: 271.13 Current BMI: 43.7 [place] body weight (based on NIH guidelines): 58.967 kg Excess body weight loss: 0.0% The patient is a 54 year-old F who presents for Bariatric Assessment. Patient presents today for initial consultation. She is interested in sleeve gastrectomy. Her BMI is 44. Past Medical History Past Medical History: Asthma Additional Past Medical History / Comment(s): NEUROPATHY History of Any Multi-Drug Resistant Organisms: None Reported Past Surgical History: Hysterectomy, Orthopedic Surgery, Tubal Ligation Additional Past Surgical History / Comment(s): Carpal tunnel surgery in both hands Past Anesthesia/Blood Transfusion Reactions: No Reported Reaction Past Psychological History: No Psychological Hx Reported Additional Psychological History / Comment(s): Mild Depression, not taking anything for it. Smoking Status: Never smoker Past Alcohol Use History: None Reported Additional Past Alcohol Use History / Comment(s): Rarely has a drink Past Drug Use History: None Reported - Past Family History Father Family Medical History: Diabetes Mellitus Surgical - Exam Vital Signs Temp Pulse Resp BP 98.4 F 91 16 162/96 05/07/19 14:03 05/07/19 14:03 05/07/19 14:03 05/07/19 14:03 - General well developed, well nourished, no distress - Eyes PERRL - ENT normal pinna - Neck no masses - Respiratory normal expansion - Cardiovascular Rhythm: regular - Abdomen Abdomen: soft, non tender Bariatric Assessment & Plan Plan: Morbid obesity, BMI 44. Will be scheduled for for EGD. She will follow-up in the office after this has been performed. Bariatric Checklist Checklist: Plan: Checklist: EGD: 1. Hiatal hernia: 2. H. Pylori: HgbA1c: Vitamin D: Smoking: Never smoker Primary care physician referral: sourav Psychiatry clearance: Cardiology clearance: Sleep study: Diet journal: VTE risk score: VTE risk level: Rehab needs at discharge:
== END | disposition home or self-care (01) ==
LOC: BARWHC3 13:48
PROVIDERS: ATTEND Surgery
DX: E66.01 Morbid (severe) obesity due to excess calories (principal); Z68.41 Body mass index [BMI] 40.0-44.9, adult; Z90.710 Acquired absence of both cervix and uterus; Z98.51 Tubal ligation status
CPT/HCPCS: 99201

== ENCOUNTER → 2019-05-28 | Outpatient (CLI) | payer MEDICARE ==
--- NOTE | 2019-05-28 10:09 | P.OP ---
Date of Procedure: 05/28/19 Preoperative Diagnosis: Screening colonoscopy Postoperative Diagnosis: Diverticulosis Internal and external hemorrhoids Procedure(s) Performed: Colonoscopy Anesthesia: KORY Surgeon: Colt Rosales Pathology: none sent Condition: stable Disposition: PACU Description of Procedure: The patient's placed on the endoscopy table in the lateral position. She received IV sedation. Digital rectal exam was performed which revealed internal and external hemorrhoids. Flexible colonoscope was then placed patient anus passed throughout the entire colon. The ileocecal valve was visualized. The cecum, ascending and transverse colon appeared normal. In the descending; was mild diverticular changes. Scope was then brought back the rectum and this appeared normal. Scope was withdrawn for patient.
[2019-05-28 12:04] VITALS: BMI 43.9
== END ==
LOC: BARWHC3 08:24
PROVIDERS: ATTEND Surgery
DX: E66.01 Morbid (severe) obesity due to excess calories (principal); Z68.41 Body mass index [BMI] 40.0-44.9, adult
CPT/HCPCS: 36415; 80053; 85025; 93005; 97804

== ENCOUNTER → 2019-05-28 | Outpatient (CLI) | payer MEDICARE ==
[2019-05-28 12:51] LABS: ALT 51 U/L (9-52); AST 31 U/L (14-36); African American GFR (CKD) >90 (>60 ml/min/1.73 sqM); Albumin 4.2 g/dL (3.5-5.0); Alkaline Phosphatase 69 U/L (38-126); Anion Gap 9 mmol/L; Blood Urea Nitrogen 10 mg/dL (7-17); Calcium 9.4 mg/dL (8.4-10.2); Carbon Dioxide 29 mmol/L (22-30); Chloride 102 mmol/L (98-107); Glucose 112 mg/dL (74-99); Potassium 4.5 mmol/L (3.5-5.1); Sodium 140 mmol/L (137-145); Total Bilirubin 0.6 mg/dL (0.2-1.3); Total Protein 7.3 g/dL (6.3-8.2)
[2019-05-28 13:04] LABS: Basophils # (A) 0.1 k/uL (0-0.2); Basophils % (A) 1 %; Eosinophils # (A) 0.3 k/uL (0-0.7); Eosinophils % (A) 3 %; HCT 44.8 % (34.0-46.0); HGB 14.9 gm/dL (11.4-16.0); Lymphocytes # (A) 2.5 k/uL (1.0-4.8); Lymphocytes % (A) 25 %; MCH 30.2 pg (25.0-35.0); MCHC 33.2 g/dL (31.0-37.0); MCV 90.9 fL (80.0-100.0); Mean Platelet Volume 5.4; Monocytes # (A) 0.5 k/uL (0-1.0); Monocytes % (A) 5 %; Neutrophils # (A) 6.3 k/uL (1.3-7.7); Neutrophils % (A) 64 %; Platelet Count 289 k/uL (150-450); RBC 4.93 m/uL (3.80-5.40); RDW 13.1 % (11.5-15.5); WBC 9.8 k/uL (3.8-10.6)
== END | disposition home or self-care (01) ==
LOC: LABPAT 12:00
PROVIDERS: ATTEND Surgery
DX: Z01.812 Encounter for preprocedural laboratory examination (principal)
CPT/HCPCS: 36415; 80053; 85025; 93005

== ENCOUNTER 2019-05-30 07:48 | Day surgery (SDC) | payer MEDICARE ==
[2019-05-25 14:15] VITALS: BMI 42.7
[~2019-05-30 07:48] MED LIST: LACTATED RINGERS 1,000 ML IV SCH; LIDOCAINE 1% 20 ML VIAL (10MG/ML) FOR IV START INTRADERMA PRN
[2019-05-30 08:49] VITALS: TEMP 98.2
[2019-05-30] MEDS ORDERED: PROPOFOL 10 MG/ML 20 ML VIAL IV ONE (09:13)
[2019-05-30] MEDS ORDERED: LIDOCAINE 1% INJ 10MG/ML (20 ML MDV) ONE (09:13)
--- NOTE | 2019-05-30 09:16 | P.GSHP ---
History of Present Illness H&P Date: 05/30/19 Chief Complaint: GERDMorbid obesity This is a 54-year-old female who presents today for EGD. She is undergoing workup for sleeve gastrectomy. Patient's echo with GERD. Her BMI is 44. Past Medical History Past Medical History: Asthma, Osteoarthritis (OA), Sleep Apnea/CPAP/BIPAP Additional Past Medical History / Comment(s): NEUROPATHY-abdiel lower legs, "BP goes up with over excertion", "irregular heart beat from too much caffeine" History of Any Multi-Drug Resistant Organisms: None Reported Past Surgical History: Cholecystectomy, Hysterectomy, Orthopedic Surgery, Tubal Ligation Additional Past Surgical History / Comment(s): Carpal tunnel surgery in both hands, rt knee arthroscopy Past Anesthesia/Blood Transfusion Reactions: No Reported Reaction Smoking Status: Never smoker - Past Family History Father Family Medical History: Diabetes Mellitus Mother Family Medical History: No Reported History Medications and Allergies Home Medications Medication Instructions Recorded Confirmed Type Albuterol Inhaler [Ventolin Hfa 1 - 2 puff INHALATION Q6HR PRN 10/04/16 05/30/19 History Inhaler] Gabapentin 600 mg PO TID 10/04/16 05/30/19 History Fluticasone/Vilanterol [Breo 1 inhalation PO Q24HR 05/25/19 05/30/19 History Ellipta 100-25 Mcg Inhaler] Fluticasone/Vilanterol [Breo 1 puff INHALATION DIRECTED 05/28/19 05/30/19 History Ellipta 100-25 Mcg Inhaler] Allergies Allergy/AdvReac Type Severity Reaction Status Date / Time aspirin Allergy Anaphylaxis Verified 05/30/19 08:49 bupropion Allergy Rash/Hives Verified 05/30/19 08:49 Sulfa (Sulfonamide Allergy Rash/Hives Verified 05/30/19 08:49 Antibiotics) SEAFOOD Allergy Anaphylaxis Uncoded 05/30/19 08:49 Surgical - Exam Vital Signs Temp Pulse Resp BP Pulse Ox 98.2 F 87 20 172/73 95 05/30/19 08:47 05/30/19 08:47 05/30/19 08:47 05/30/19 08:47 05/30/19 08:47 - General well developed, well nourished, no distress - Eyes PERRL - ENT normal pinna - Neck no masses - Respiratory normal expansion - Cardiovascular Rhythm: regular - Abdomen Abdomen: soft, non tender Assessment and Plan Assessment: GERD Morbid obesity We'll perform EGD
--- NOTE | 2019-05-30 09:23 | P.OP ---
Date of Procedure: 05/30/19 Preoperative Diagnosis: Morbid obesity GERD Postoperative Diagnosis: Antral gastritis Procedure(s) Performed: EGD Anesthesia: MAC Surgeon: Colt Rosales Pathology: other (Antrum) Condition: stable Disposition: PACU Description of Procedure: The patient's placed on the endoscopy table in the lateral position. She received IV sedation. The gastro-placed oropharynx and passed in the esophagus into the stomach. Scope then placed through the pylorus. The first and second portion of the duodenum appeared normal. Scope was then brought back the antrum this was mildly inflamed. A biopsies performed. Scope was retroflexed and remainder stomach appeared normal. The GE junction was at 40 cm. The distal esophagus and proximal esophagus. Normal. Scope was withdrawn for patient.
[2019-05-30 09:29] VITALS: RESP 16
[2019-05-30 09:58] VITALS: BP 128/77; PULSE 76
== END 2019-05-30 10:10 | disposition home or self-care (01) ==
LOC: ORWHC2ENDO 07:48
PROVIDERS: ATTEND Surgery
DX: K21.9 Gastro-esophageal reflux disease without esophagitis (principal); K29.50 Unspecified chronic gastritis without bleeding; J45.909 Unspecified asthma, uncomplicated; M19.90 Unspecified osteoarthritis, unspecified site; G47.33 Obstructive sleep apnea (adult) (pediatric); Z99.89 Dependence on other enabling machines and devices; G57.93 Unspecified mononeuropathy of bilateral lower limbs; E66.01 Morbid (severe) obesity due to excess calories; Z68.41 Body mass index [BMI] 40.0-44.9, adult; Z90.49 Acquired absence of other specified parts of digestive tract; Z90.710 Acquired absence of both cervix and uterus; Z83.3 Family history of diabetes mellitus; Z79.51 Long term (current) use of inhaled steroids; Z79.899 Other long term (current) drug therapy; Z88.2 Allergy status to sulfonamides; Z88.8 Allergy status to other drugs, medicaments and biological substances; Z88.6 Allergy status to analgesic agent; Z91.013 Allergy to seafood
CPT/HCPCS: 88305; 43239; J2001; J2704

== ENCOUNTER → 2019-07-16 | Outpatient (CLI) | payer MEDICARE ==
[2019-07-16 15:36] LABS: Basophils # (A) 0.2 k/uL (0-0.2); Basophils % (A) 3 %; Eosinophils # (A) 0.2 k/uL (0-0.7); Eosinophils % (A) 3 %; HGB 16.3 gm/dL (11.4-16.0); Lymphocytes # (A) 1.5 k/uL (1.0-4.8); Lymphocytes % (A) 18 %; MCH 29.7 pg (25.0-35.0); MCHC 33.2 g/dL (31.0-37.0); MCV 89.6 fL (80.0-100.0); Mean Platelet Volume 6.2; Monocytes # (A) 0.5 k/uL (0-1.0); Monocytes % (A) 6 %; Neutrophils # (A) 5.8 k/uL (1.3-7.7); Neutrophils % (A) 69 %; Platelet Count 298 k/uL (150-450); RBC 5.47 m/uL (3.80-5.40); RDW 12.6 % (11.5-15.5); WBC 8.5 k/uL (3.8-10.6)
[2019-07-16 15:46] LABS: Chloride 100 mmol/L (98-107)
[2019-07-16 15:48] LABS: ALT 102 U/L (9-52); AST 60 U/L (14-36); African American GFR (CKD) >90 (>60 ml/min/1.73 sqM); Albumin 4.8 g/dL (3.5-5.0); Alkaline Phosphatase 67 U/L (38-126); Anion Gap 13 mmol/L; Blood Urea Nitrogen 24 mg/dL (7-17); Calcium 10.5 mg/dL (8.4-10.2); Carbon Dioxide 26 mmol/L (22-30); Glucose 111 mg/dL (74-99); Non-African American GFR(CKD) 83 (>60 ml/min/1.73 sqM); Potassium 4.5 mmol/L (3.5-5.1); Sodium 139 mmol/L (137-145); Total Bilirubin 0.8 mg/dL (0.2-1.3); Total Protein 7.9 g/dL (6.3-8.2)
== END | disposition home or self-care (01) ==
LOC: LABPAT 15:00
PROVIDERS: ATTEND Surgery
DX: Z01.812 Encounter for preprocedural laboratory examination (principal)
CPT/HCPCS: 36415; 80053; 85025

== ENCOUNTER → 2019-07-16 | Outpatient (CLI) | payer MEDICARE ==
[2019-07-16 14:00] VITALS: BP 150/94; PULSE 121; RESP 16; TEMP 97.9
--- NOTE | 2019-07-16 14:09 | P.HPBAR ---
Bariatric H&P - History & Physicial H&P Date: 07/16/19 History & Physicial: Visit/CC: pre-surg Patient initial contact: Initial weight: 122.98 kg Initial weight in pounds: 271.12 Height: 5 ft 6 in Initial BMI: Last weight: Current weight: 122.016 kg Current weight in pounds: Current BMI: [place] body weight (based on NIH guidelines): Excess body weight loss: The patient is a 54 year-old F who presents for Bariatric Assessment. Patient presents today for sleeve gastrectomy presurgical consultation. The patient will be scheduled for surgery next month. The patient is an excellent understanding of the sleeve gastrectomy. She into the risks and benefits of the procedure. Her BMI is 43. Past Medical History Past Medical History: Asthma, Osteoarthritis (OA), Sleep Apnea/CPAP/BIPAP Additional Past Medical History / Comment(s): NEUROPATHY-abdiel lower legs, "BP goes up with over excertion", "irregular heart beat from too much caffeine" History of Any Multi-Drug Resistant Organisms: None Reported Past Surgical History: Cholecystectomy, Hysterectomy, Orthopedic Surgery, Tubal Ligation Additional Past Surgical History / Comment(s): Carpal tunnel surgery in both hands, rt knee arthroscopy Past Anesthesia/Blood Transfusion Reactions: No Reported Reaction Past Psychological History: Depression Additional Psychological History / Comment(s): Mild Depression, not taking anything for it. Smoking Status: Never smoker Past Alcohol Use History: Occasional Additional Past Alcohol Use History / Comment(s): . Past Drug Use History: None Reported - Past Family History Father Family Medical History: Diabetes Mellitus Mother Family Medical History: No Reported History Surgical - Exam Vital Signs Temp Pulse Resp BP 97.9 F 121 H 16 150/94 07/16/19 13:56 07/16/19 13:56 07/16/19 13:56 07/16/19 13:56 - General well developed, well nourished, no distress - Eyes PERRL - ENT normal pinna - Neck no masses - Respiratory normal expansion - Cardiovascular Rhythm: regular - Abdomen Abdomen: soft, non tender Bariatric Assessment & Plan Plan: Morbid obesity, BMI 43. Patient's multiple comorbidities related to obesity. Patient will be scheduled for sleeve gastrectomy next. Over the risks and benefits of procedure. Patient is an excellent understanding. She is aware the risk of gastric stapling, bleeding scarring or disruption. Bariatric Checklist Checklist: Plan: Checklist: EGD: 1. Hiatal hernia: 2. H. Pylori: HgbA1c: Vitamin D: Smoking: Never smoker Primary care physician referral: sourav Psychiatry clearance: Cardiology clearance: Sleep study: Diet journal: VTE risk score: VTE risk level: Rehab needs at discharge:
== END | disposition home or self-care (01) ==
LOC: BARWHC3 13:25
PROVIDERS: ATTEND Surgery
DX: E66.01 Morbid (severe) obesity due to excess calories (principal); Z68.41 Body mass index [BMI] 40.0-44.9, adult; Z90.49 Acquired absence of other specified parts of digestive tract
CPT/HCPCS: 99211

== ENCOUNTER 2019-07-27 07:32 | Inpatient (IN) | payer MEDICARE ==
[~2019-07-27 07:32] MED LIST changes: +ENOXAPARIN 40 MG/0.4 ML SYRINGE SQ ONE; -LACTATED RINGERS 1,000 ML IV SCH; +ceFAZolin 3 GM in SODIUM CHLORIDE 0.9% 100 ML IVPB ONE
[2019-07-27 08:23] LABS: Glucose,Whole Blood 97 mg/dL (75-99)
[2019-07-27] MEDS: LACTATED RINGERS 1,000 ML IV SCH (08:23)
[2019-07-27] MEDS ORDERED: ONDANSETRON 4 MG/2 ML VIAL IVP ONE (08:23)
[2019-07-27] MEDS ORDERED: DEXAMETHASONE SOD PHOSPHATE 10 MG/ML 1 ML VIAL IV ONE (08:24)
--- NOTE | 2019-07-27 08:39 | P.GSHP ---
History of Present Illness H&P Date: 07/27/19 Chief Complaint: Morbid obesity, BMI 42 This is a 54-year-old female who presents today for laparoscopic sleeve gastrectomy. Patient has had lifetime problems morbid obesity. Her BMI is 42. She's developed severe comorbidities related to morbid obesity. Patient shows a risk of gastric sleeve. She is aware the risks of possible staple line disruption, bleeding or scarring. Past Medical History Past Medical History: Asthma, Osteoarthritis (OA), Sleep Apnea/CPAP/BIPAP Additional Past Medical History / Comment(s): NEUROPATHY-abdiel lower legs, "BP goes up with over excertion", "irregular heart beat from too much caffeine",uses cpap,borderline diabetes History of Any Multi-Drug Resistant Organisms: None Reported Past Surgical History: Cholecystectomy, Hysterectomy, Orthopedic Surgery, Tubal Ligation Additional Past Surgical History / Comment(s): Carpal tunnel surgery in both hands, rt knee arthroscopy Past Anesthesia/Blood Transfusion Reactions: No Reported Reaction Additional Past Anesthesia/Blood Transfusion Reaction / Comment(s): no problems with prior blood transfusion Smoking Status: Never smoker - Past Family History Father Family Medical History: Diabetes Mellitus Mother Family Medical History: No Reported History Medications and Allergies Home Medications Medication Instructions Recorded Confirmed Type Albuterol Inhaler [Ventolin Hfa 1 - 2 puff INHALATION Q6HR PRN 10/04/16 07/27/19 History Inhaler] Gabapentin 600 mg PO TID 10/04/16 07/27/19 History Fluticasone/Vilanterol [Breo 1 inhalation PO QAM 05/25/19 07/27/19 History Ellipta 100-25 Mcg Inhaler] Allergies Allergy/AdvReac Type Severity Reaction Status Date / Time aspirin Allergy Anaphylaxis Verified 07/27/19 07:53 bupropion Allergy Rash/Hives Verified 07/27/19 07:53 Sulfa (Sulfonamide Allergy Rash/Hives Verified 07/27/19 07:53 Antibiotics) SEAFOOD Allergy Anaphylaxis Uncoded 07/27/19 07:53 Surgical - Exam Vital Signs Temp Pulse Resp BP Pulse Ox 98.4 F 105 H 18 161/85 94 L 07/27/19 08:00 07/27/19 08:00 07/27/19 08:00 07/27/19 08:00 07/27/19 08:00 - General well developed, well nourished, no distress - Eyes PERRL - ENT normal pinna - Neck no masses - Respiratory normal expansion - Cardiovascular Rhythm: regular - Abdomen Abdomen: soft, non tender Assessment and Plan Assessment: RBC, BMI 42. We'll perform laparoscopic sleeve gastrectomy.
[2019-07-27] MEDS ORDERED: GLYCOPYRROLATE 0.2 MG/ML 2 ML VIAL ONE (09:05)
[2019-07-27] MEDS ORDERED: MIDAZOLAM 2 MG/2 ML VIAL ONE (09:05)
[2019-07-27] MEDS ORDERED: NEOSTIGMINE 1 MG/ML 10 ML VIAL ONE (09:05)
[2019-07-27] MEDS ORDERED: HYDROmorphone (PF) 1 MG/ML ONE (09:05)
[2019-07-27] MEDS ORDERED: PROPOFOL 10 MG/ML 20 ML VIAL IV ONE (09:05)
[2019-07-27] MEDS ORDERED: PHENYLEPHRINE-0.9% NACL SYG 1 MG/10 ML SYRINGE ONE (09:05)
[2019-07-27] MEDS ORDERED: ROCURONIUM BROMIDE 10 MG/ML 10 ML VIAL IV ONE (09:05)
[2019-07-27] MEDS ORDERED: fentaNYL (PF) 50 MCG/ML 2 ML AMP ONE (09:05)
[2019-07-27] MEDS ORDERED: LIDOCAINE 1% INJ 10MG/ML (20 ML MDV) ONE (09:05)
[2019-07-27] MEDS ORDERED: BUPIVACAIN-EPI 0.25%-1:200,000 30 ML VIAL SQ ONE (09:44)
[2019-07-27] MEDS ORDERED: HYDROmorphone 1 MG/ML 1 ML SYRINGE IVP PRN (10:22)
[2019-07-27] MEDS ORDERED: diphenhydrAMINE 50 MG/ML 1 ML VIAL IVP PRN (10:22)
[2019-07-27] MEDS ORDERED: SIMETHICONE 80 MG CHEWABLE PO PRN (10:22)
[2019-07-27] MEDS ORDERED: HYOSCYAMINE ORAL DROPS 1.875 MG/15 ML BOTTLE PO PRN (10:22)
[2019-07-27] MEDS ORDERED: NALOXONE 0.4 MG/ML 1 ML VIAL IV PRN (10:22)
[2019-07-27] MEDS ORDERED: ONDANSETRON 4 MG/2 ML VIAL IVP PRN (10:22)
--- NOTE | 2019-07-27 10:22 | P.OP ---
Date of Procedure: 07/27/19 Preoperative Diagnosis: Morbid obesity, BMI 42 Postoperative Diagnosis: Morbid obesity, BMI 42 Procedure(s) Performed: Laparoscopic sleeve gastrectomy Anesthesia: KORY Surgeon: Colt Rosales Estimated Blood Loss (ml): 10 Pathology: other (Gastric sleeve) Condition: stable Disposition: PACU Description of Procedure: LThe patient was placed on the operating room table in the supine position. She received general anesthesia and then was placed in dorsal lithotomy position. Her abdomen was prepped and draped in sterile fashion. The skin incision sites were anesthetized 1% local Xylocaine. And then the skin was incised with an 11 blade in the left lateral position. Using a blade less trocar under direct visualization the peritoneal cavity was entered. The abdomen was insufflated and then a 5 mm laparoscope was placed into the peritoneal cavity. A 5 mm trocar was placed in the right epigastric, and right lateral position. A 15 mm trocar was placed in the supra-umbilical position and another 5 mm trocar was placed in the left lateral position. The left lateral lobe of the liver was retracted. The stomach was visualized. The greater curvature of the stomach was then dissected using the Harmonic scissors. The dissection occurred approximately 5 cm from the pylorus to the level of the left kurtis. There was no hiatal hernia seen. At this point a 40-Nigerian bougie dilator was placed the oropharynx and passed into the esophagus and into the stomach by the RN ACUTE DIALYSIS. The sleeve gastrectomy was performed by using the powered echelon stapler with a seam guard buttress material. Sequential firings of the stapler were performed. The gastric remnant was then brought out through the 15 mm trocar site. The dilator was withdrawn. And a orogastric tube was replaced into the stomach. The stomach was insufflated with 200 mL of methylene blue normal saline. There was no evidence of extravasation. The abdomen was irrigated there is no bleeding seen. The Ezequiel-Jennifer device was used to close the 15 mm trocar with 0 Vicryl. Skin was closed with interrupted 3-0 Monocryl sutures once the trochars withdrawn. Dermabond dressing was applied. Patient was sent to recovery in stable condition.
[2019-07-27 10:39] LABS: Glucose,Whole Blood 163 mg/dL (75-99)
[2019-07-27] MEDS ORDERED: HYDROmorphone 1 MG/ML 1 ML SYRINGE IVP ONE ×2 (11:05→11:19)
[2019-07-27] MEDS ORDERED: KETOROLAC 30 MG/ML 1 ML VIAL IVP ONE (11:06)
[2019-07-27] MEDS: 0.9% NACL WITH KCL 20 MEQ/L 1,000 ML IV SCH (15:23)
[2019-07-27] MEDS: ALBUTEROL NEBULIZED 2.5 MG/3 ML INHALATION SCH ×2 (16:46→19:40)
[2019-07-27] MEDS: KETOROLAC 30 MG/ML 1 ML VIAL IVP SCH (18:03)
[2019-07-28] MEDS: KETOROLAC 30 MG/ML 1 ML VIAL IVP SCH ×3 (00:20→11:58)
[2019-07-28] MEDS: ENOXAPARIN 40 MG/0.4 ML SYRINGE SQ SCH ×2 (00:23→07:54)
[2019-07-28] MEDS: 0.9% NACL WITH KCL 20 MEQ/L 1,000 ML IV SCH ×2 (00:36→06:03)
[2019-07-28] MEDS: LACTATED RINGERS 1,000 ML IV SCH (06:03)
[2019-07-28 06:53] LABS: Basophils % (A) 0 %; Eosinophils % (A) 0 %; HCT 32.2 % (34.0-46.0); Lymphocytes # (A) 0.8 k/uL (1.0-4.8); Lymphocytes % (A) 12 %; MCH 30.3 pg (25.0-35.0); MCHC 33.5 g/dL (31.0-37.0); MCV 90.4 fL (80.0-100.0); Mean Platelet Volume 6.3; Monocytes # (A) 0.5 k/uL (0-1.0); Monocytes % (A) 6 %; Neutrophils # (A) 5.6 k/uL (1.3-7.7); Neutrophils % (A) 80 %; Platelet Count 252 k/uL (150-450); RBC 3.56 m/uL (3.80-5.40); RDW 12.9 % (11.5-15.5)
[2019-07-28 07:03] LABS: African American GFR (CKD) >90 (>60 ml/min/1.73 sqM); Anion Gap 10 mmol/L; Blood Urea Nitrogen 14 mg/dL (7-17); Calcium 8.2 mg/dL (8.4-10.2); Carbon Dioxide 23 mmol/L (22-30); Chloride 107 mmol/L (98-107); Magnesium 1.9 mg/dL (1.6-2.3); Non-African American GFR(CKD) >90 (>60 ml/min/1.73 sqM); Phosphorus 3.8 mg/dL (2.5-4.5); Potassium 4.7 mmol/L (3.5-5.1); Sodium 140 mmol/L (137-145)
--- NOTE | 2019-07-28 07:13 | FL ---
EXAMINATION TYPE: FL UGI DATE OF EXAM ORDERED: 07/28/2019 7:07 AM HISTORY: Status post gastric sleeve. COMPARISON: None. FINDINGS: The patient drank thin barium of these. There is no evidence of obstructing or constrictin g disease. There is no evidence of extravasation. There is no significant free air. The ligament of T maggi is in the normal location. IMPRESSION: STATUS POST GASTRIC SLEEVE PROCEDURE.
[2019-07-28 07:20] LABS: HGB 10.8 gm/dL (11.4-16.0)
[2019-07-28] MEDS ORDERED: 1: MVI, ADULT NO.4 WITH VIT K 10 ML, THIAMINE 100 MG, FOLIC ACID 1 MG, POTASSIUM CHLORID IV SCH ×6 (08:00)
[2019-07-28 08:13] VITALS: BP 160/83; PULSE 111; RESP 12; TEMP 98.1
[2019-07-28] MEDS: ALBUTEROL NEBULIZED 2.5 MG/3 ML INHALATION SCH ×3 (08:45→15:19)
[2019-07-28] MEDS ORDERED: PANTOPRAZOLE 40 MG/10 ML VIAL IV SCH (09:00)
--- NOTE | 2019-07-28 13:07 | P.DS ---
Providers Date of admission: 07/27/19 07:32 Expected date of discharge: 07/28/19 Attending physician: Colt Rosales Consults: 07/27/19 10:22 Consult Physician Routine Consulting Provider: Abbey Ortiz Consult Reason/Comments: Medical management Do you want consulting provider notified?: Yes Primary care physician: Ross Lau - Discharge Diagnosis(es) (1) Morbid obesity due to excess calories Current Visit: Yes Status: Acute Hospital Course: CHIEF COMPLAINT: Morbid obesity HISTORY OF PRESENT ILLNESS: The patient is a 54-year-old female postop day 1 status post sleeve gastrectomy. She feels well. She is tolerating liquids. She is ambulating. ROS: No reports of nausea and vomiting. No fevers or chills. No new chest pain. No productive sputum PHYSICAL EXAM: VITAL SIGNS: Reviewed CONSTITUTIONAL: Well developed and in no acute distress. EYES: Conjuctivae without sclera icterus. Extraocular movements grossly intact. HEAD, EARS, NOSE, THROAT: Moist buccal mucosa. Head is atraumatic, normocephalic. Hears conversational speech. No nasal drainage. RESPIRATORY: Non-labored respirations and equal bilateral excursions. CARDIOVASCULAR: Palpable 2+ radial pulses. Regular rate. Regular rhythm. ABDOMEN: Incisions clean dry and intact. Soft. No peritonitis. MUSCULOSKELETAL: No gross deformity of the lower extremities noted. No clubbing. No cyanosis. SKIN: Good skin turgor. Well perfused. NEUROLOGIC: Cranial nerves I through XII grossly intact. No focal or lateralizing signs. PSYCH: Appropriate affect. Alert and oriented to person, place and time. CLINICAL LABS: White blood cell count normal STUDIES: Esophagram independently reviewed without leaks or obstruction ASSESSMENT: 1. Status post sleeve gastrectomy PLAN: 1. Overall, patient clinically stable for discharge Laboratory Last Values WBC 7.0 k/uL (3.8-10.6) 07/28/19 06:15 RBC 3.56 m/uL (3.80-5.40) L 07/28/19 06:15 Hgb 10.8 gm/dL (11.4-16.0) L D 07/28/19 06:15 Hct 32.2 % (34.0-46.0) L 07/28/19 06:15 MCV 90.4 fL (80.0-100.0) 07/28/19 06:15 MCH 30.3 pg (25.0-35.0) 07/28/19 06:15 MCHC 33.5 g/dL (31.0-37.0) 07/28/19 06:15 RDW 12.9 % (11.5-15.5) 07/28/19 06:15 Plt Count 252 k/uL (150-450) 07/28/19 06:15 Neutrophils % 80 % 07/28/19 06:15 Lymphocytes % 12 % 07/28/19 06:15 Monocytes % 6 % 07/28/19 06:15 Eosinophils % 0 % 07/28/19 06:15 Basophils % 0 % 07/28/19 06:15 Neutrophils # 5.6 k/uL (1.3-7.7) 07/28/19 06:15 Lymphocytes # 0.8 k/uL (1.0-4.8) L 07/28/19 06:15 Monocytes # 0.5 k/uL (0-1.0) 07/28/19 06:15 Eosinophils # 0.0 k/uL (0-0.7) 07/28/19 06:15 Basophils # 0.0 k/uL (0-0.2) 07/28/19 06:15 Sodium 140 mmol/L (137-145) 07/28/19 06:15 Potassium 4.7 mmol/L (3.5-5.1) 07/28/19 06:15 Chloride 107 mmol/L (98-107) 07/28/19 06:15 Carbon Dioxide 23 mmol/L (22-30) 07/28/19 06:15 Anion Gap 10 mmol/L 07/28/19 06:15 BUN 14 mg/dL (7-17) 07/28/19 06:15 Creatinine 0.71 mg/dL (0.52-1.04) 07/28/19 06:15 Est GFR (CKD-EPI)AfAm >90 (>60 ml/min/1.73 sqM) 07/28/19 06:15 Est GFR (CKD-EPI)NonAf >90 (>60 ml/min/1.73 sqM) 07/28/19 06:15 POC Glucose (mg/dL) 163 mg/dL (75-99) H 07/27/19 10:37 POC Glu Oven Operator ID Kelly Rosen 07/27/19 10:37 Calcium 8.2 mg/dL (8.4-10.2) L 07/28/19 06:15 Phosphorus 3.8 mg/dL (2.5-4.5) 07/28/19 06:15 Magnesium 1.9 mg/dL (1.6-2.3) 07/28/19 06:15 Vital Signs Temp 98.1 F 07/28/19 07:00 Pulse 111 H 07/28/19 07:57 Resp 12 07/28/19 07:57 BP 160/83 07/28/19 07:00 Pulse Ox 96 07/28/19 07:00 Intake & Output 07/27/19 07/28/19 07/28/19 18:59 06:59 18:59 Intake Total 720 1300 Output Total 5 Balance 715 1300 Weight 117.934 kg Intake: IV 700 Intake, IV Titration 20 1300 Amount 0.9% NaCl with KCl 20 Meq 1250 /l 1,000 ml @ 150 mls/hr IV .Q6H40M [facility] Rx#: [id number] Lactated Ringers 1,000 ml 20 @ 20 mls/hr IV .Q24H [facility] Rx#:[id number] ceFAZolin 2 gm In Sodium 50 Chloride 0.9% 50 ml @ 100 mls/hr IVPB Q8H [facility] Rx#: [id number] Output: Estimated Blood Loss 5 Other: Voiding Method Toilet Toilet # Voids 1 Patient Condition at Discharge: Stable Plan - Discharge Summary Discharge Rx Participant: No New Discharge Prescriptions: New Bisacodyl [Dulcolax] 5 mg PO DAILY PRN #10 tablet.dr PRN Reason: Constipation Simethicone 40 mg/0.6 ml Drops [Mylicon Drops] 40 mg PO PCHS PRN #30 ml PRN Reason: Gas HYDROcodone/APAP 5-325MG [[place] 5-325] 1 tab PO Q6HR PRN #10 tab PRN Reason: Pain Ondansetron Odt [Zofran Odt] 4 mg PO Q8HR PRN #9 tab PRN Reason: Nausea No Action Gabapentin 600 mg PO TID Albuterol Inhaler [Ventolin Hfa Inhaler] 1 - 2 puff INHALATION Q6HR PRN PRN Reason: Shortness Of Breath Fluticasone/Vilanterol [Breo Ellipta 100-25 Mcg Inhaler] 1 inhalation PO QAM Discharge Medication List Albuterol Inhaler [Ventolin Hfa Inhaler] 1 - 2 puff INHALATION Q6HR PRN 10/04/16 [History] Gabapentin 600 mg PO TID 10/04/16 [History] Fluticasone/Vilanterol [Breo Ellipta 100-25 Mcg Inhaler] 1 inhalation PO QAM 05/25/19 [History] Bisacodyl [Dulcolax] 5 mg PO DAILY PRN #10 tablet. 07/27/19 [Rx] HYDROcodone/APAP 5-325MG [[place] 5-325] 1 tab PO Q6HR PRN #10 tab 07/27/19 [Rx] Ondansetron Odt [Zofran Odt] 4 mg PO Q8HR PRN #9 tab 07/27/19 [Rx] Simethicone 40 mg/0.6 ml Drops [Mylicon Drops] 40 mg PO PCHS PRN #30 ml 07/27/19 [Rx] [facility]Ref[place] [facility] [place] [place] 1 Week
[2019-07-28 15:36] VITALS: BMI 41.9
== END 2019-07-28 15:53 | disposition home or self-care (01) | DRG 621 ==
LOC: 2ORMAIN 07:32 → 4SSUR 12:46
PROVIDERS: ADMIT Surgery; ATTEND Surgery
PROC: 0DB64Z3 Excision of Stomach, Percutaneous Endoscopic Approach, Vertical (ICD-10-PCS; principal; 2019-07-27 09:15)
DX: E66.01 Morbid (severe) obesity due to excess calories (principal); J45.909 Unspecified asthma, uncomplicated; M19.90 Unspecified osteoarthritis, unspecified site; R73.03 Prediabetes; Z68.41 Body mass index [BMI] 40.0-44.9, adult; Z79.899 Other long term (current) drug therapy; Z83.3 Family history of diabetes mellitus; Z90.710 Acquired absence of both cervix and uterus; Z99.89 Dependence on other enabling machines and devices; Z90.49 Acquired absence of other specified parts of digestive tract; Z98.890 Other specified postprocedural states; Z88.2 Allergy status to sulfonamides; Z88.8 Allergy status to other drugs, medicaments and biological substances; Z88.6 Allergy status to analgesic agent; Z91.013 Allergy to seafood; Z98.51 Tubal ligation status
CPT/HCPCS: 74240; 80051; 82310; 82565; 83735; 84100; 84520; 85025; 88307; 94760; 94762

== ENCOUNTER → 2019-07-31 | Outpatient (CLI) | payer MEDICARE ==
[2019-07-31 11:15] VITALS: BMI 42.9
[2019-07-31 12:56] VITALS: BP 132/82; PULSE 97; TEMP 98.2
== END | disposition home or self-care (01) ==
LOC: BARWHC3 10:20
PROVIDERS: ATTEND Surgery
DX: E66.01 Morbid (severe) obesity due to excess calories (principal); Z68.41 Body mass index [BMI] 40.0-44.9, adult
CPT/HCPCS: 97802; G0463; 99211

== ENCOUNTER → 2019-08-06 | Outpatient (CLI) | payer MEDICARE ==
[2019-08-06 15:10] VITALS: BP 126/79; PULSE 101; RESP 16; TEMP 98.2; BMI 41.8
== END | disposition home or self-care (01) ==
LOC: BARWHC3 13:29
PROVIDERS: ATTEND Surgery
DX: F33.41 Major depressive disorder, recurrent, in partial remission (principal)
CPT/HCPCS: 99211

== ENCOUNTER → 2019-09-03 | Outpatient (CLI) | payer MEDICARE ==
[2019-09-03 15:37] VITALS: BMI 39.8
--- NOTE | 2019-09-03 16:23 | P.HPBAR ---
Bariatric H&P - History & Physicial H&P Date: 09/03/19 History & Physicial: Visit/CC: Patient initial contact: Initial weight: 122.98 kg Initial weight in pounds: Height: 5 ft 6 in Initial BMI: Last weight: Current weight: 111.947 kg Current weight in pounds: Current BMI: 39.8 [place] body weight (based on NIH guidelines): 58.967 kg Excess body weight loss: The patient is a 54 year-old F who presents for Bariatric Assessment. Patient is doing well. She has some mild complaints of GERD. Past Medical History Past Medical History: Asthma, Osteoarthritis (OA), Sleep Apnea/CPAP/BIPAP Additional Past Medical History / Comment(s): NEUROPATHY-abdiel lower legs, "BP goes up with over excertion", "irregular heart beat from too much caffeine" History of Any Multi-Drug Resistant Organisms: None Reported Past Surgical History: Bariatric Surgery, Cholecystectomy, Hysterectomy, Orthopedic Surgery, Tubal Ligation Additional Past Surgical History / Comment(s): Carpal tunnel surgery in both hands, rt knee arthroscopy sleeve gastrectomy 07-27-19 Past Anesthesia/Blood Transfusion Reactions: No Reported Reaction Additional Past Anesthesia/Blood Transfusion Reaction / Comm: no problems with prior blood transfusion Past Psychological History: Depression Additional Psychological History / Comment(s): Mild Depression, not taking anything for it. Smoking Status: Never smoker Past Alcohol Use History: Occasional Additional Past Alcohol Use History / Comment(s): . Past Drug Use History: None Reported - Past Family History Mother Family Medical History: No Reported History Surgical - Exam - General well developed, well nourished, no distress - Abdomen Abdomen: soft, non tender Bariatric Assessment & Plan Plan: Resolving morbid obesity. Status post sleeve gastrectomy Patient BMI 39 today. She is an excellent weight loss. Her GERD is minimal and will be observed. Bariatric Checklist Checklist: Plan: Checklist: EGD: 1. Hiatal hernia: 2. H. Pylori: HgbA1c: Vitamin D: Smoking: Never smoker Primary care physician referral: sourav Psychiatry clearance: Cardiology clearance: Sleep study: Diet journal: VTE risk score: VTE risk level: Rehab needs at discharge:
[2019-09-03 16:57] LABS: HCT 41.6 % (34.0-46.0); HGB 13.5 gm/dL (11.4-16.0); MCH 29.6 pg (25.0-35.0); MCHC 32.6 g/dL (31.0-37.0); MCV 90.9 fL (80.0-100.0); Mean Platelet Volume 7.2; Platelet Count 215 k/uL (150-450); RBC 4.58 m/uL (3.80-5.40); RDW 13.5 % (11.5-15.5); WBC 5.7 k/uL (3.8-10.6)
[2019-09-04 00:33] LABS: African American GFR (CKD) 96.2 (60.0-200.0); Albumin 4.2 g/dL (3.80-4.90); Albumin/Globulin Ratio 2.21 (1.60-3.17); Anion Gap 10.4 mmol/L (4.00-12.00); Calcium 9.4 mg/dL (8.7-10.3); Carbon Dioxide 24.6 mmol/L (21.6-31.8); Globulin 1.9 g/dL (1.6-3.3); Potassium 3.7 mmol/L (3.5-5.5); Total Bilirubin 0.5 mg/dL (0.3-1.2); Total Protein 6.1 g/dL (6.2-8.2)
[2019-09-04 01:03] LABS: Folate, Serum 14.8 ng/mL
[2019-09-04 17:46] VITALS: BP 154/89; PULSE 77; TEMP 97.8
== END | disposition home or self-care (01) ==
LOC: BARWHC3 14:19
PROVIDERS: ATTEND Surgery
DX: E66.01 Morbid (severe) obesity due to excess calories (principal); K21.9 Gastro-esophageal reflux disease without esophagitis; Z98.84 Bariatric surgery status; Z90.49 Acquired absence of other specified parts of digestive tract; Z68.39 Body mass index [BMI] 39.0-39.9, adult; E44.0 Moderate protein-calorie malnutrition
CPT/HCPCS: 84425; 80053; 82607; 82746; 84443; 85027; 82306; 97803; 36415; G0463; 99211

== ENCOUNTER → 2019-10-08 | Outpatient (CLI) | payer MEDICARE ==
[2019-10-08 15:13] VITALS: PULSE 77; TEMP 97.8; BMI 37.5
[2019-10-08 15:28] VITALS: BP 135/85
--- NOTE | 2019-10-11 11:24 | P.HPBAR ---
Bariatric H&P - History & Physicial H&P Date: 10/08/19 History & Physicial: Visit/CC: 2 mos sleeve f/u Patient initial contact: Initial weight: 122.98 kg Initial weight in pounds: 271.12 Height: 5 ft 6 in Initial BMI: 43.7 Last weight: Current weight: 105.687 kg Current weight in pounds: 233.00 Current BMI: 37.5 [place] body weight (based on NIH guidelines): 58.967 kg Excess body weight loss: 27.0% The patient is a 54 year-old F who presents for Bariatric Assessment. Patient presents today for sleeve gastrectomy follow-up. She's had some mild GERD. Past Medical History Past Medical History: Asthma, Osteoarthritis (OA), Sleep Apnea/CPAP/BIPAP Additional Past Medical History / Comment(s): NEUROPATHY-abdiel lower legs, "BP goes up with over excertion", "irregular heart beat from too much caffeine" History of Any Multi-Drug Resistant Organisms: None Reported Past Surgical History: Bariatric Surgery, Cholecystectomy, Hysterectomy, Orthopedic Surgery, Tubal Ligation Additional Past Surgical History / Comment(s): Carpal tunnel surgery in both hands, rt knee arthroscopy sleeve gastrectomy 07-27-19 Past Anesthesia/Blood Transfusion Reactions: No Reported Reaction Additional Past Anesthesia/Blood Transfusion Reaction / Comm: no problems with prior blood transfusion Past Psychological History: Depression Additional Psychological History / Comment(s): Mild Depression, not taking anything for it. Smoking Status: Never smoker Past Alcohol Use History: Occasional Additional Past Alcohol Use History / Comment(s): . Past Drug Use History: None Reported - Past Family History Mother Family Medical History: No Reported History Surgical - Exam Vital Signs Temp Pulse BP 97.8 F 77 154/89 10/08/19 15:07 10/08/19 15:07 10/08/19 15:07 - General well developed, well nourished, no distress - Eyes PERRL - ENT normal pinna - Neck no masses - Respiratory normal expansion - Cardiovascular Rhythm: regular - Abdomen Abdomen: soft, non tender Bariatric Assessment & Plan Plan: The patient is doing well from her sleeve gastrectomy. She's had excellent weight loss. Her GERD is minimal and will be observed. Bariatric Checklist Checklist: Plan: Checklist: EGD: 1. Hiatal hernia: 2. H. Pylori: HgbA1c: Vitamin D: Smoking: Never smoker Primary care physician referral: sourav Psychiatry clearance: Cardiology clearance: Sleep study: Diet journal: VTE risk score: VTE risk level: Rehab needs at discharge:
== END | disposition home or self-care (01) ==
LOC: BARWHC3 14:43
PROVIDERS: ATTEND Surgery
DX: Z48.815 Encounter for surgical aftercare following surgery on the digestive system (principal); K21.9 Gastro-esophageal reflux disease without esophagitis; Z98.84 Bariatric surgery status; Z90.49 Acquired absence of other specified parts of digestive tract
CPT/HCPCS: 99211

== ENCOUNTER 2019-10-18 07:56 | Day surgery (SDC) | payer MEDICARE ==
[2019-10-16 10:23] VITALS: BMI 37.5
[~2019-10-18 07:56] MED LIST changes: -ENOXAPARIN 40 MG/0.4 ML SYRINGE SQ ONE; +LACTATED RINGERS 1,000 ML IV SCH; +LIDOCAINE 1% (10MG/ML) FOR IV START INTRADERMA PRN; -LIDOCAINE 1% 20 ML VIAL (10MG/ML) FOR IV START INTRADERMA PRN; -ceFAZolin 3 GM in SODIUM CHLORIDE 0.9% 100 ML IVPB ONE
[2019-10-18 08:21] VITALS: TEMP 97.8
[2019-10-18] MEDS ORDERED: LIDOCAINE 1% INJ 10MG/ML (20 ML MDV) ONE (09:01)
[2019-10-18] MEDS ORDERED: PROPOFOL 10 MG/ML 20 ML VIAL IV ONE (09:01)
--- NOTE | 2019-10-18 09:08 | P.GSHP ---
History of Present Illness H&P Date: 10/18/19 Chief Complaint: Screening colonoscopy This a 54-year-old female who presents today for colonoscopy. Patient denies any significant GI complaints. Past Medical History Past Medical History: Asthma, GERD/Reflux, Osteoarthritis (OA), Pneumonia, Sleep Apnea/CPAP/BIPAP Additional Past Medical History / Comment(s): NEUROPATHY-abdiel lower legs, "occ. irregular fast heart beat from too much caffeine", migraine x 1, History of Any Multi-Drug Resistant Organisms: None Reported Past Surgical History: Bariatric Surgery, Cholecystectomy, Hysterectomy, Orthopedic Surgery, Tubal Ligation Additional Past Surgical History / Comment(s): Carpal tunnel surgery in both hands, rt knee arthroscopy, sleeve gastrectomy 07-27-19 Past Anesthesia/Blood Transfusion Reactions: No Reported Reaction Additional Past Anesthesia/Blood Transfusion Reaction / Comment(s): . Smoking Status: Never smoker - Past Family History Mother Family Medical History: No Reported History Medications and Allergies Home Medications Medication Instructions Recorded Confirmed Type Albuterol Inhaler [Ventolin Hfa 1 - 2 puff INHALATION Q6HR PRN 10/04/16 10/18/19 History Inhaler] Gabapentin 600 mg PO TID 10/04/16 10/18/19 History Fluticasone/Vilanterol [Breo 1 inhalation PO QAM 05/25/19 10/18/19 History Ellipta 100-25 Mcg Inhaler] Calcium Citrate 500 mg PO BID 09/12/19 10/18/19 History Cholecalciferol [Vitamin D3 (25 10,000 units PO DAILY 09/12/19 10/18/19 History Mcg = 1000 Iu)] Multivitamins, Thera [Multivitamin 1 tab PO DAILY 09/12/19 10/18/19 History (formulary)] Cyanocobalamin (Vitamin B-12) 1,000 mcg PO DAILY 10/08/19 10/18/19 History [Vitamin B-12] Omeprazole [PriLOSEC] 40 mg PO DAILY PRN 10/16/19 10/18/19 History Allergies Allergy/AdvReac Type Severity Reaction Status Date / Time aspirin Allergy Anaphylaxis Verified 10/18/19 08:24 bupropion Allergy Rash/Hives Verified 10/18/19 08:24 Sulfa (Sulfonamide Allergy Rash/Hives Verified 10/18/19 08:24 Antibiotics) SEAFOOD Allergy Anaphylaxis Uncoded 10/18/19 08:24 Surgical - Exam Vital Signs Temp Pulse Resp BP Pulse Ox 97.8 F 94 18 153/76 93 L 10/18/19 08:17 10/18/19 08:17 10/18/19 08:17 10/18/19 08:17 10/18/19 08:17 - General well developed, well nourished, no distress - Eyes PERRL - ENT normal pinna - Neck no masses - Respiratory normal expansion - Cardiovascular Rhythm: regular - Abdomen Abdomen: soft, non tender Assessment and Plan Assessment: We'll perform screening colonoscopy.
--- NOTE | 2019-10-18 09:24 | P.OP ---
Date of Procedure: 10/18/19 Preoperative Diagnosis: Screening colonoscopy Postoperative Diagnosis: Transverse colon polyp Procedure(s) Performed: Colonoscopy Anesthesia: MAC Surgeon: Colt Rosales Pathology: other (Transverse colon polyp) Condition: stable Disposition: PACU Description of Procedure: The patient's placed on the endoscopy table in the lateral position. She received IV sedation. Digital rectal exam was performed which revealed no abnormalities. The flexible colonoscope was then placed patient anus and passed throughout the entire colon. The ileocecal valve was visualized. The cecum appeared normal. The ascending colon appeared normal. In the transverse colon there was a small sessile polyp was removed forcep. Scope withdrawn the remainder of the transverse colon, descending colon and sigmoid colon appeared normal. Scope was then brought back the rectum and this appeared normal. Scope was withdrawn for patient.
[2019-10-18 09:34] VITALS: RESP 16
[2019-10-18 10:00] VITALS: BP 127/84; PULSE 63
--- NOTE | 2019-10-22 09:20 | CDI ---
Date: 10.22.19 CDS/Cell Pourer Name: Rupal Guzman Phone: If any questions, call Teresa Tolentino [employer] at [phone] Patient Name: Stacy Vera Admit Date: 10.18.19 Discharge Date: 10.18.19 ATTENTION: The [facility] Coding Staff appreciate your assistance in clarifying documentation. Please respond to the clarification below the line at the bottom and electronically sign. The [facility] Coding staff will review the response and follow-up if needed. Please note: Queries are made part of the Legal Health Record. If you have any questions, please contact the [employer]. Dear Dr Rosales Please specify which type of forcep (Hot or Cold) removal was used to remove the polyp. Thank you for your kind consideration. see op note addjose luisudm. ZB 10/24 [email or web address]
== END 2019-10-18 10:52 | disposition home or self-care (01) ==
LOC: ORWHC2ENDO 07:56
PROVIDERS: ATTEND Surgery
DX: Z12.11 Encounter for screening for malignant neoplasm of colon (principal); D12.3 Benign neoplasm of transverse colon; J45.909 Unspecified asthma, uncomplicated; K21.9 Gastro-esophageal reflux disease without esophagitis; M19.90 Unspecified osteoarthritis, unspecified site; Z87.01 Personal history of pneumonia (recurrent); G47.33 Obstructive sleep apnea (adult) (pediatric); Z99.89 Dependence on other enabling machines and devices; G62.9 Polyneuropathy, unspecified; G43.909 Migraine, unspecified, not intractable, without status migrainosus; Z98.84 Bariatric surgery status; Z90.49 Acquired absence of other specified parts of digestive tract; Z90.710 Acquired absence of both cervix and uterus; Z98.890 Other specified postprocedural states; Z98.51 Tubal ligation status; Z86.69 Personal history of other diseases of the nervous system and sense organs; Z79.899 Other long term (current) drug therapy; Z79.51 Long term (current) use of inhaled steroids; Z88.6 Allergy status to analgesic agent; Z88.8 Allergy status to other drugs, medicaments and biological substances; Z88.2 Allergy status to sulfonamides; Z91.013 Allergy to seafood; I25.2 Old myocardial infarction
CPT/HCPCS: 88305; 45380; J2001; J2704

== ENCOUNTER → 2019-10-29 | Outpatient (CLI) | payer MEDICARE ==
[2019-10-29 15:29] LABS: HCT 44.3 % (34.0-46.0); HGB 14.5 gm/dL (11.4-16.0); MCH 29.1 pg (25.0-35.0); MCHC 32.8 g/dL (31.0-37.0); MCV 88.9 fL (80.0-100.0); Mean Platelet Volume 7.2; Platelet Count 229 k/uL (150-450); RBC 4.98 m/uL (3.80-5.40); RDW 13.1 % (11.5-15.5); WBC 5.9 k/uL (3.8-10.6)
[2019-10-29 20:04] LABS: % Iron Saturation 22.53 (12.00-45.00); African American GFR (CKD) 96.2 (60.0-200.0); Albumin 4.4 g/dL (3.80-4.90); Albumin/Globulin Ratio 2.1 (1.60-3.17); Calcium 9.4 mg/dL (8.7-10.3); Globulin 2.1 g/dL (1.6-3.3); Potassium 4.2 mmol/L (3.5-5.5); Total Bilirubin 0.7 mg/dL (0.3-1.2); Total Protein 6.5 g/dL (6.2-8.2)
[2019-10-29 20:12] LABS: Ferritin 60.4 ng/mL (10.0-291.0)
== END | disposition home or self-care (01) ==
LOC: LABWHC1 14:40
PROVIDERS: ATTEND Surgery
DX: D50.8 Other iron deficiency anemias (principal); E44.0 Moderate protein-calorie malnutrition; E55.9 Vitamin D deficiency, unspecified; E66.01 Morbid (severe) obesity due to excess calories
CPT/HCPCS: 36415; 80053; 82306; 82607; 82728; 82746; 83540; 83550; 84134; 84425; 84443; 85027

== ENCOUNTER → 2019-11-05 | Outpatient (CLI) | payer MEDICARE ==
[2019-11-05 14:35] VITALS: BP 154/96; PULSE 68; TEMP 97.6; BMI 36.4
--- NOTE | 2019-11-05 14:35 | P.HPBAR ---
Bariatric H&P - History & Physicial H&P Date: 11/05/19 History & Physicial: Visit/CC: Patient initial contact: Initial weight: 122.98 kg Initial weight in pounds: Height: 5 ft 6 in Initial BMI: Last weight: Current weight: 102.512 kg Current weight in pounds: Current BMI: [place] body weight (based on NIH guidelines): Excess body weight loss: The patient is a 54 year-old F who presents for Bariatric Assessment. Patient presents today for sleeve gastrectomy fall. She lost another 7 pounds since her last visit. She's had some minimal GERD. The patient is moving to [place] and will be following up with Dr. Casey purvis. Past Medical History Past Medical History: Asthma, GERD/Reflux, Osteoarthritis (OA), Pneumonia, Sleep Apnea/CPAP/BIPAP Additional Past Medical History / Comment(s): NEUROPATHY-abdiel lower legs, "occ. irregular fast heart beat from too much caffeine", migraine x 1, History of Any Multi-Drug Resistant Organisms: None Reported Past Surgical History: Bariatric Surgery, Cholecystectomy, Hysterectomy, Orthopedic Surgery, Tubal Ligation Additional Past Surgical History / Comment(s): Carpal tunnel surgery in both hands, rt knee arthroscopy, sleeve gastrectomy 07-27-19 Past Anesthesia/Blood Transfusion Reactions: No Reported Reaction Additional Past Anesthesia/Blood Transfusion Reaction / Comm: . Smoking Status: Never smoker - Past Family History Mother Family Medical History: No Reported History Surgical - Exam - General well developed, well nourished, no distress - Eyes PERRL - ENT normal pinna - Neck no masses - Respiratory normal expansion - Cardiovascular Rhythm: regular - Abdomen Abdomen: soft, non tender Bariatric Assessment & Plan Plan: Status post sleeve gastrectomy. Patient is doing quite well. Her GERD is minimal will be observed. Bariatric Checklist Checklist: Plan: Checklist: EGD: 1. Hiatal hernia: 2. H. Pylori: HgbA1c: Vitamin D: Smoking: Never smoker Primary care physician referral: sourav Psychiatry clearance: Cardiology clearance: Sleep study: Diet journal: VTE risk score: VTE risk level: Rehab needs at discharge:
== END | disposition home or self-care (01) ==
LOC: BARWHC3 13:32
PROVIDERS: ATTEND Surgery
DX: Z48.815 Encounter for surgical aftercare following surgery on the digestive system (principal); K21.9 Gastro-esophageal reflux disease without esophagitis; Z90.49 Acquired absence of other specified parts of digestive tract; Z98.84 Bariatric surgery status
CPT/HCPCS: 97803; G0463; 99211